=== PATIENT | male | born 1985 | race Hispanic/Latino ===

== ENCOUNTER 2016-08-20 15:43 | Emergency (ER) | payer MEDICAID ==
[2016-08-20 16:20] VITALS: BP 136/94
[2016-08-20 16:58] LABS: Basophils % (Auto) 0.8 % (0.0-1.8); Hematocrit 45.6 % (35.5-45.6); Hemoglobin 15.6 gm/dl (11.8-15.2); Mean Corpuscular HGB Conc 34 % (32-34); Mean Corpuscular Hemoglobin 32 pg (28-32); Mean Corpuscular Volume 94 fl (84-94); Platelet Count 301 K/mm3 (140-440); Red Blood Count 4.86 M/mm3 (3.65-5.03); Red Cell Distribution Width 13.8 % (13.2-15.2)
[2016-08-20 17:25] LABS: Urine Drugs of Abuse Note Disclamer
[2016-08-20 17:34] LABS: Anion Gap 20 mmol/L; BUN/Creatinine Ratio 12.85; Blood Urea Nitrogen 9 mg/dL (9-20); Calcium 8.9 mg/dL (8.4-10.2); Carbon Dioxide 20 mmol/L (22-30); Chloride 100.2 mmol/L (98-107); Glucose 94 mg/dL (75-100); Potassium 3.9 mmol/L (3.6-5.0); Sodium 136 mmol/L (137-145)
[2016-08-20 17:43] LABS: Bilirubin,Urine NEG (Negative); Blood,Urine NEG (Negative); Ketones,Urine NEG (Negative); Leukocyte Esterase,Urine NEG (Negative); Nitrite,Urine NEG (Negative); Protein,Urine <15 mg/dL mg/dL (Negative); Urobilinogen,Urine < 2.0 mg/dL (<2.0); WBC,Urine < 1.0 /HPF (0.0-6.0)
--- NOTE | 2016-08-22 00:37 | ED Elopement Review ---
ED Pt Elopement review - Results review Lab results: Laboratory Tests 08/20/16 08/20/16 08/20/16 16:37 16:37 16:37 WBC 8.0 RBC 4.86 Hgb 15.6 H Hct 45.6 MCV 94 MCH 32 MCHC 34 RDW 13.8 Plt Count 301 Lymph % (Auto) 19.2 [place] % (Auto) 7.9 H Eos % (Auto) 1.0 Baso % (Auto) 0.8 Lymph # 1.5 [place] # 0.6 Eos # 0.1 Baso # 0.1 Seg Neutrophils % 71.1 H Seg Neutrophils # 5.7 Sodium 136 L Potassium 3.9 Chloride 100.2 Carbon Dioxide 20 L Anion Gap 20 BUN 9 Creatinine 0.7 L Estimated GFR > 60 BUN/Creatinine Ratio 12.85 Glucose 94 Calcium 8.9 Urine Color Urine Turbidity Urine pH Ur Specific [place] Urine Protein Urine Glucose (UA) Urine Ketones Urine Blood Urine Nitrite Urine Bilirubin Urine Urobilinogen Ur Leukocyte Esterase Urine WBC (Auto) Urine RBC (Auto) Urine Opiates Screen Urine Methadone Screen Ur Barbiturates Screen Ur Phencyclidine Scrn Ur Amphetamines Screen U Benzodiazepines Scrn Urine Cocaine Screen U Marijuana (THC) Screen Drugs of Abuse Note Plasma/Serum Alcohol < 0.01 08/20/16 08/20/16 17:23 17:23 WBC RBC Hgb Hct MCV MCH MCHC RDW Plt Count Lymph % (Auto) [place] % (Auto) Eos % (Auto) Baso % (Auto) Lymph # [place] # Eos # Baso # Seg Neutrophils % Seg Neutrophils # Sodium Potassium Chloride Carbon Dioxide Anion Gap BUN Creatinine Estimated GFR BUN/Creatinine Ratio Glucose Calcium Urine Color Yellow Urine Turbidity Clear Urine pH 6.0 Ur Specific [place] 1.011 Urine Protein <15 mg/dl Urine Glucose (UA) Neg Urine Ketones Neg Urine Blood Neg Urine Nitrite Neg Urine Bilirubin Neg Urine Urobilinogen < 2.0 Ur Leukocyte Esterase Neg Urine WBC (Auto) < 1.0 Urine RBC (Auto) 1.0 Urine Opiates Screen Presumptive negative Urine Methadone Screen Presumptive negative Ur Barbiturates Screen Presumptive negative Ur Phencyclidine Scrn Presumptive negative Ur Amphetamines Screen Presumptive negative U Benzodiazepines Scrn Presumptive negative Urine Cocaine Screen Presumptive negative U Marijuana (THC) Screen Presumptive negative Drugs of Abuse Note Disclamer Plasma/Serum Alcohol - Call Back decision Pt Call Back Decision: No action required
== END 2016-08-20 16:37 | disposition left against medical advice (07) ==
LOC: ED 15:43 → EEVIPCON 15:43 → ED 16:37
DX: R00.2 Palpitations (principal); Z88.6 Allergy status to analgesic agent; Z91.048 Other nonmedicinal substance allergy status; Z79.899 Other long term (current) drug therapy; Z53.21 Procedure and treatment not carried out due to patient leaving prior to being seen by health care provider
CPT/HCPCS: 36415; 80048; 80307; 81001; 85025; G0480; 80320

== ENCOUNTER 2016-08-21 10:49 | Emergency (ER) | payer MEDICAID ==
[2016-08-21 12:24] LABS: Basophils % (Auto) 0.7 % (0.0-1.8); Eosinophils % (Auto) 2.8 % (0.0-4.3); Hemoglobin 15.7 gm/dl (11.8-15.2); Mean Corpuscular HGB Conc 34 % (32-34); Mean Corpuscular Hemoglobin 31 pg (28-32); Mean Corpuscular Volume 94 fl (84-94); Platelet Count 313 K/mm3 (140-440); Red Blood Count 5.01 M/mm3 (3.65-5.03); Red Cell Distribution Width 13.4 % (13.2-15.2); White Blood Count 8.8 K/mm3 (4.5-11.0)
[2016-08-21 12:42] LABS: BUN/Creatinine Ratio 11.66; Blood Urea Nitrogen 7 mg/dL (9-20); Carbon Dioxide 23 mmol/L (22-30); Glucose 92 mg/dL (75-100)
[2016-08-21 12:43] LABS: Anion Gap 15 mmol/L; Chloride 104.8 mmol/L (98-107); Potassium 4.1 mmol/L (3.6-5.0); Sodium 139 mmol/L (137-145)
[2016-08-21 15:25] LABS: Urine Drugs of Abuse Note Disclamer
[2016-08-21 15:41] LABS: Bilirubin,Urine NEG (Negative); Blood,Urine NEG (Negative); Ketones,Urine 20 mg/dL (Negative); Leukocyte Esterase,Urine NEG (Negative); Mucus,Urine FEW /HPF; Nitrite,Urine NEG (Negative); Protein,Urine <15 mg/dL mg/dL (Negative); Urobilinogen,Urine < 2.0 mg/dL (<2.0); WBC,Urine < 1.0 /HPF (0.0-6.0)
[2016-08-21 17:09] VITALS: BP 123/84
--- NOTE | 2016-08-21 17:59 | Emergency Department Report ---
ED Psych HPI - General Chief Complaint: Medical Clearance Stated Complaint: MEDICAL CLEARENCE Time Seen by Provider: 08/21/16 17:29 Source: patient Mode of arrival: Ambulatory Limitations: No Limitations - History of Present Illness Initial Comments: 30-year-old male with a past medical history of schizophrenia, hypertension, surgery for previous brain aneurysm to the hospital with requests to be transferred to [facility]. Patient states he needs to go to [place] because he was homeless and has nowhere else to go. Patient also states he use some drugs recently (mixed with multiple drugs as per pt) and pt requesting drug rehabilitation as well. Patient denies feeling suicidal, homicidal, or auditory or visual hallucinations. Patient states he's been compliant with his psychiatric medication. No physical complaints reported. - Related Data Home Medications Medication Instructions Recorded Confirmed Last Taken Haloperidol [Haldol] 5 mg PO BID 10/07/15 05/16/16 Unknown Divalproex ER [Depakote ER] 2 tab PO BID 01/01/16 05/16/16 Unknown Buspirone HCl [busPIRone] 15 mg PO TID 03/29/16 05/16/16 Unknown Divalproex ER [DepaKOTE ER] 1,000 mg PO QHS 03/29/16 05/16/16 Unknown OLANzapine [ZyPREXA] 10 mg PO DAILY 03/29/16 05/16/16 Unknown OLANzapine [ZyPREXA] 30 mg PO QHS 03/29/16 05/16/16 Unknown rOPINIRole [Requip] 0.5 mg PO QHS 03/29/16 05/16/16 Unknown traZODone [Desyrel] 50 mg PO QHS 03/29/16 05/16/16 Unknown Previous Rx's Medication Instructions Recorded Last Taken Type Mirtazapine [Remeron] 30 mg PO QHS #30 tablet 10/07/15 Unknown Rx Allergies Allergy/AdvReac Type Severity Reaction Status Date / Time codeine Allergy Unknown Verified 03/01/16 22:56 nickel Allergy Rash Uncoded 04/07/15 10:37 ED Review of Systems ROS: Stated complaint: MEDICAL CLEARENCE Other details as noted in HPI Comment: All other systems reviewed and negative Other: Constitutional: No fevers chills Eyes: No eye pain visual changes ENT: No ear pain or throat pain Neck: Denies pain Respiratory: Denies cough wheezing shortness of breath Cardiovascular: Denies chest pain, palpitations, syncope GI: Denies abdominal pain, nausea, vomiting, diarrhea : Denies dysuria, urinary frequency, or urgency Musculoskeletal: Denies back pain, joint swelling Skin: Denies rash, lesions, erythema Neurologic: Denies headache, numbness, weakness Psychiatric: Denies suicidal ideation, hallucinations ED Past Medical Hx - Past Medical History Hx Hypertension: Yes Hx Psychiatric Treatment: Yes (schizophrenia) - Surgical History Hx Appendectomy: Yes Additional Surgical History: BRAIN SURGERY( aneurysm) - Social History Smoking Status: Current Every Day Smoker Substance Use Type: Alcohol - Medications Home Medications: Home Medications Medication Instructions Recorded Confirmed Last Taken Type Haloperidol [Haldol] 5 mg PO BID 10/07/15 05/16/16 Unknown History Mirtazapine [Remeron] 30 mg PO QHS #30 tablet 10/07/15 05/16/16 Unknown Rx Divalproex ER [Depakote ER] 2 tab PO BID 01/01/16 05/16/16 Unknown History Buspirone HCl [busPIRone] 15 mg PO TID 03/29/16 05/16/16 Unknown History Divalproex ER [DepaKOTE ER] 1,000 mg PO QHS 03/29/16 05/16/16 Unknown History OLANzapine [ZyPREXA] 10 mg PO DAILY 03/29/16 05/16/16 Unknown History OLANzapine [ZyPREXA] 30 mg PO QHS 03/29/16 05/16/16 Unknown History rOPINIRole [Requip] 0.5 mg PO QHS 03/29/16 05/16/16 Unknown History traZODone [Desyrel] 50 mg PO QHS 03/29/16 05/16/16 Unknown History ED Physical Exam - General Limitations: No Limitations - Other Other exam information: General: No limitations, patient is alert in no acute distress poor hygiene Head exam: Atraumatic, normocephalic Eyes exam: Normal appearance ENT: Moist mucous membrane, normal oropharynx Neck exam: Normal inspection, full range of motion, no meningismus nontender Respiratory exam: Clear to auscultation bilateral, no wheezes, rales, crackles Cardiovascular: Normal rate and rhythm, normal heart sounds Abdomen: Soft, nondistended, and nontender, with normal bowel sounds, no rebound, or guarding Extremity: Full range of motion normal inspection no deformity Back: Normal Inspection, full range of motion, no tenderness Neurologic: Alert, oriented x3, cranial nerves intact, no motor or sensory deficit Psychiatric: normal affect, normal mood Skin: Warm, dry, intact ED Course Vital Signs 08/21/16 08/21/16 08/21/16 11:53 17:04 17:09 Temperature 98.3 F 98.1 F Pulse Rate 89 91 H Respiratory 20 17 16 Rate Blood Pressure 120/83 Blood Pressure 123/84 [Left] O2 Sat by Pulse 97 97 97 Oximetry - Consultations Consultation #1: 08/21/16 17:58 consult ED Medical Decision Making - Lab Data Result diagrams: 08/21/16 12:11 08/21/16 12:11 Lab Results 08/21/16 08/21/16 08/21/16 Range/Units 12:11 12:11 12:11 WBC 8.8 (4.5-11.0) K/mm3 RBC 5.01 (3.65-5.03) M/mm3 Hgb 15.7 H (11.8-15.2) gm/dl Hct 47.0 H (35.5-45.6) % MCV 94 (84-94) fl MCH 31 (28-32) pg MCHC 34 (32-34) % RDW 13.4 (13.2-15.2) % Plt Count 313 (140-440) K/mm3 Lymph % (Auto) 22.3 (13.4-35.0) % [place] % (Auto) 6.5 (0.0-7.3) % Eos % (Auto) 2.8 (0.0-4.3) % Baso % (Auto) 0.7 (0.0-1.8) % Lymph # 2.0 (1.2-5.4) K/mm3 [place] # 0.6 (0.0-0.8) K/mm3 Eos # 0.2 (0.0-0.4) K/mm3 Baso # 0.1 (0.0-0.1) K/mm3 Seg Neutrophils % 67.7 (40.0-70.0) % Seg Neutrophils # 6.0 (1.8-7.7) K/mm3 Sodium 139 (137-145) mmol/L Potassium 4.1 (3.6-5.0) mmol/L Chloride 104.8 (98-107) mmol/L Carbon Dioxide 23 (22-30) mmol/L Anion Gap 15 mmol/L BUN 7 L (9-20) mg/dL Creatinine 0.6 L (0.8-1.5) mg/dL Estimated GFR > 60 ml/min BUN/Creatinine Ratio 11.66 % Glucose 92 (75-100) mg/dL Calcium 9.0 (8.4-10.2) mg/dL Urine Color (Yellow) Urine Turbidity (Clear) Urine pH (5.0-7.0) Ur Specific [place] (1.003-1.030) Urine Protein (Negative) mg/dL Urine Glucose (UA) (Negative) mg/dL Urine Ketones (Negative) mg/dL Urine Blood (Negative) Urine Nitrite (Negative) Urine Bilirubin (Negative) Urine Urobilinogen (<2.0) mg/dL Ur Leukocyte Esterase (Negative) Urine WBC (Auto) (0.0-6.0) /HPF Urine RBC (Auto) (0.0-6.0) /HPF Urine Mucus /HPF Urine Opiates Screen Urine Methadone Screen Ur Barbiturates Screen Ur Phencyclidine Scrn Ur Amphetamines Screen U Benzodiazepines Scrn Urine Cocaine Screen U Marijuana (THC) Screen Drugs of Abuse Note Plasma/Serum Alcohol < 0.01 (0-0.07) gm% 08/21/16 08/21/16 Range/Units 14:43 14:43 WBC (4.5-11.0) K/mm3 RBC (3.65-5.03) M/mm3 Hgb (11.8-15.2) gm/dl Hct (35.5-45.6) % MCV (84-94) fl MCH (28-32) pg MCHC (32-34) % RDW (13.2-15.2) % Plt Count (140-440) K/mm3 Lymph % (Auto) (13.4-35.0) % [place] % (Auto) (0.0-7.3) % Eos % (Auto) (0.0-4.3) % Baso % (Auto) (0.0-1.8) % Lymph # (1.2-5.4) K/mm3 [place] # (0.0-0.8) K/mm3 Eos # (0.0-0.4) K/mm3 Baso # (0.0-0.1) K/mm3 Seg Neutrophils % (40.0-70.0) % Seg Neutrophils # (1.8-7.7) K/mm3 Sodium (137-145) mmol/L Potassium (3.6-5.0) mmol/L Chloride (98-107) mmol/L Carbon Dioxide (22-30) mmol/L Anion Gap mmol/L BUN (9-20) mg/dL Creatinine (0.8-1.5) mg/dL Estimated GFR ml/min BUN/Creatinine Ratio % Glucose (75-100) mg/dL Calcium (8.4-10.2) mg/dL Urine Color Yellow (Yellow) Urine Turbidity Clear (Clear) Urine pH 6.0 (5.0-7.0) Ur Specific [place] 1.011 (1.003-1.030) Urine Protein <15 mg/dl (Negative) mg/dL Urine Glucose (UA) Neg (Negative) mg/dL Urine Ketones 20 (Negative) mg/dL Urine Blood Neg (Negative) Urine Nitrite Neg (Negative) Urine Bilirubin Neg (Negative) Urine Urobilinogen < 2.0 (<2.0) mg/dL Ur Leukocyte Esterase Neg (Negative) Urine WBC (Auto) < 1.0 (0.0-6.0) /HPF Urine RBC (Auto) 1.0 (0.0-6.0) /HPF Urine Mucus Few /HPF Urine Opiates Screen Presumptive negative Urine Methadone Screen Presumptive negative Ur Barbiturates Screen Presumptive negative Ur Phencyclidine Scrn Presumptive negative Ur Amphetamines Screen Presumptive negative U Benzodiazepines Scrn Presumptive negative Urine Cocaine Screen Presumptive negative U Marijuana (THC) Screen Presumptive negative Drugs of Abuse Note Disclamer Plasma/Serum Alcohol (0-0.07) gm% - Medical Decision Making Patient evaluated by mental health provider and she agrees that patient does not meet 1013 criteria. UDS is negative. Patient denies suicidal ideation and acute psychosis. Patient's primary reason for being in the ER appears to be homelessness. He provided resources for shelters and discharged home - Differential Diagnosis homelessness, depression, schizophrenia, substance Critical Care Time: No Critical care attestation.: If time is entered above; I have spent that time in minutes in the direct care of this critically ill patient, excluding procedure time. ED Disposition Clinical Impression: Homelessness, Schizophrenia Disposition: DISCHARGED TO HOME OR SELFCARE Is pt being admited?: No Does the pt Need Aspirin: No Condition: Stable Instructions: Schizophrenia (ED) Additional Instructions: Continue your medications as prescribed. Follow-up with either psychiatrist clinic provided. Return if symptoms worsen Referrals: [facility] [Outside] - 2-3 Days md mulu [Other] - 2-3 Days Time of Disposition: 18:25
== END 2016-08-21 19:11 | disposition home or self-care (01) ==
LOC: ED 10:49
DX: F20.9 Schizophrenia, unspecified (principal); Z59.0 Homelessness; I10 Essential (primary) hypertension; F17.200 Nicotine dependence, unspecified, uncomplicated; Z90.49 Acquired absence of other specified parts of digestive tract; Z88.5 Allergy status to narcotic agent; Z88.8 Allergy status to other drugs, medicaments and biological substances
CPT/HCPCS: 36415; 80048; 80307; 81001; 85025; 99284; G0480; 80320

== ENCOUNTER 2016-08-26 03:08 | Emergency (ER) | payer MEDICAID ==
[2016-08-26 04:06] LABS: Basophils % (Auto) 0.5 % (0.0-1.8); Eosinophils % (Auto) 0.3 % (0.0-4.3); Hematocrit 49.5 % (35.5-45.6); Hemoglobin 16.6 gm/dl (11.8-15.2); Mean Corpuscular HGB Conc 34 % (32-34); Mean Corpuscular Hemoglobin 31 pg (28-32); Mean Corpuscular Volume 94 fl (84-94); Platelet Count 343 K/mm3 (140-440); Red Blood Count 5.27 M/mm3 (3.65-5.03); Red Cell Distribution Width 13.7 % (13.2-15.2); White Blood Count 14.3 K/mm3 (4.5-11.0)
[2016-08-26 04:08] LABS: Urine Drugs of Abuse Note Disclamer
[2016-08-26 04:22] LABS: Anion Gap 19 mmol/L; Blood Urea Nitrogen 9 mg/dL (9-20); Calcium 9.1 mg/dL (8.4-10.2); Carbon Dioxide 21 mmol/L (22-30); Chloride 98.7 mmol/L (98-107); Glucose 109 mg/dL (75-100); Potassium 3.6 mmol/L (3.6-5.0); Sodium 135 mmol/L (137-145)
[2016-08-26 04:31] LABS: Bilirubin,Urine NEG (Negative); Blood,Urine NEG (Negative); Ketones,Urine 80 mg/dL (Negative); Leukocyte Esterase,Urine NEG (Negative); Mucus,Urine FEW /HPF; Nitrite,Urine NEG (Negative); Urobilinogen,Urine < 2.0 mg/dL (<2.0)
[2016-08-26] MEDS ORDERED: ATIVAN IM PRN (07:13)
--- NOTE | 2016-08-26 07:20 | Emergency Department Report ---
ED General Adult HPI - General Chief complaint: Psych Stated complaint: MH EVALUATION Time Seen by Provider: 08/26/16 07:04 Source: patient, RN notes reviewed, old records reviewed Mode of arrival: Ambulatory Limitations: No Limitations - History of Present Illness Initial comments: This is a 30-year-old male. He has a history of psychiatric disease, schizophrenia, hypertension. He presents to the ER with resolved homicidality and suicidality. He requests to have his medications refilled. He indicates that he is homeless. He denies pain. He denies hallucinations. -: Gradual Consistency: now resolved Improves with: none Worsens with: none Associated Symptoms: denies other symptoms - Related Data Home Medications Medication Instructions Recorded Confirmed Last Taken Haloperidol [Haldol] 5 mg PO BID 10/07/15 08/26/16 Unknown Divalproex ER [Depakote ER] 2 tab PO BID 01/01/16 08/26/16 Unknown Buspirone HCl [busPIRone] 15 mg PO TID 03/29/16 08/26/16 Unknown Divalproex ER [DepaKOTE ER] 1,000 mg PO QHS 03/29/16 08/26/16 Unknown OLANzapine [ZyPREXA] 10 mg PO DAILY 03/29/16 08/26/16 Unknown rOPINIRole [Requip] 0.5 mg PO QHS 03/29/16 08/26/16 Unknown traZODone [Desyrel] 50 mg PO QHS 03/29/16 08/26/16 Unknown Previous Rx's Medication Instructions Recorded Last Taken Type Mirtazapine [Remeron] 30 mg PO QHS #30 tablet 10/07/15 Unknown Rx Allergies Allergy/AdvReac Type Severity Reaction Status Date / Time codeine Allergy Unknown Verified 03/01/16 22:56 nickel Allergy Rash Uncoded 04/07/15 10:37 ED Review of Systems ROS: Stated complaint: MH EVALUATION Other details as noted in HPI Constitutional: denies: fever Eyes: denies: eye discharge ENT: as per HPI Respiratory: denies: cough Cardiovascular: denies: chest pain Gastrointestinal: as per HPI. denies: vomiting Genitourinary: as per HPI Musculoskeletal: denies: back pain Skin: denies: lesions Neurological: denies: weakness Psychiatric: as per HPI ED Past Medical Hx - Past Medical History Previous Medical History?: Yes Hx Hypertension: Yes Hx Psychiatric Treatment: Yes (schizophrenia) - Surgical History Past Surgical History?: Yes Hx Appendectomy: Yes Additional Surgical History: BRAIN SURGERY( aneurysm) - Social History Smoking Status: Unknown if ever smoked Substance Use Type: Alcohol, Cocaine, Marijuana - Medications Home Medications: Home Medications Medication Instructions Recorded Confirmed Last Taken Type Haloperidol [Haldol] 5 mg PO BID 10/07/15 08/26/16 Unknown History Mirtazapine [Remeron] 30 mg PO QHS #30 tablet 10/07/15 08/26/16 Unknown Rx Divalproex ER [Depakote ER] 2 tab PO BID 01/01/16 08/26/16 Unknown History Buspirone HCl [busPIRone] 15 mg PO TID 03/29/16 08/26/16 Unknown History Divalproex ER [DepaKOTE ER] 1,000 mg PO QHS 03/29/16 08/26/16 Unknown History OLANzapine [ZyPREXA] 10 mg PO DAILY 03/29/16 08/26/16 Unknown History rOPINIRole [Requip] 0.5 mg PO QHS 03/29/16 08/26/16 Unknown History traZODone [Desyrel] 50 mg PO QHS 03/29/16 08/26/16 Unknown History ED Physical Exam - General Limitations: No Limitations General appearance: alert, in no apparent distress - Head Head exam: Present: atraumatic, normocephalic - Eye Eye exam: Present: normal appearance, EOMI. Absent: nystagmus - ENT ENT exam: Present: normal exam, normal orophraynx, mucous membranes moist, normal external ear exam - Neck Neck exam: Present: normal inspection, full ROM. Absent: tenderness, meningismus - Respiratory Respiratory exam: Present: normal lung sounds bilaterally. Absent: respiratory distress, wheezes, rales, rhonchi, stridor, decreased breath sounds - Cardiovascular Cardiovascular Exam: Present: regular rate, normal rhythm, normal heart sounds. Absent: bradycardia, tachycardia, irregular rhythm, systolic murmur, diastolic murmur, rubs, gallop - GI/Abdominal GI/Abdominal exam: Present: soft, normal bowel sounds. Absent: distended, tenderness, guarding, rebound, rigid, pulsatile mass - Rectal Rectal exam: Present: deferred - Extremities Exam Extremities exam: Present: normal inspection, full ROM, normal capillary refill. Absent: tenderness, pedal edema, joint swelling, calf tenderness - Back Exam Back exam: Present: normal inspection, full ROM. Absent: tenderness, CVA tenderness (R), CVA tenderness (L), muscle spasm, paraspinal tenderness, vertebral tenderness - Neurological Exam Neurological exam: Present: alert, oriented X3, normal gait, other (Extraocular movements intact. Tongue midline. No facial droop. Facial sensation intact to light touch in the V1, V2, V3 distribution bilaterally. 5 and 5 strength in 4 extremities.. Sensation is intact to light touch in 4 extremities.). Absent : motor sensory deficit - Psychiatric Psychiatric exam: Present: flat affect. Absent: homicidal ideation, suicidal ideation - Skin Skin exam: Present: warm, dry, intact, normal color. Absent: rash ED Course Vital Signs 08/26/16 08/26/16 08/26/16 03:24 08:00 12:30 Temperature 98.2 F 98.4 F Pulse Rate 102 H 88 Respiratory 18 18 18 Rate Blood Pressure 151/111 Blood Pressure 146/84 [Left] O2 Sat by Pulse 100 99 100 Oximetry - Reevaluation(s) Reevaluation #1: 08/26/16 08:57 Differential diagnosis: Mood disorder, homicidality, suicidality, medication refill, homelessness Assessment and plan: 30-year-old male with an initial triage complaint of homicidality and suicidality. He is alert and oriented 3, with a GCS of 15, NIH score of 0, walks with a steady gait, has a physical examination is unremarkable. His urine toxicology screen is positive for multiple agents, there is no indication of head trauma, and there is no midline cervical spine tenderness. 1013 form is filled out, I am awaiting for the nurse to perform a medication reconciliation. At this point in time, it appears that there is no immediate medical contraindication to psychiatric admission/evaluation. The crisis team is informed. ED Medical Decision Making - Lab Data Result diagrams: 08/26/16 03:48 08/26/16 03:48 Vital Signs 08/26/16 03:24 Temperature 98.2 F Pulse Rate 102 H Respiratory 18 Rate Blood Pressure 151/111 O2 Sat by Pulse 100 Oximetry Lab Results 08/26/16 08/26/16 08/26/16 Range/Units 03:47 03:47 03:48 WBC (4.5-11.0) K/mm3 RBC (3.65-5.03) M/mm3 Hgb (11.8-15.2) gm/dl Hct (35.5-45.6) % MCV (84-94) fl MCH (28-32) pg MCHC (32-34) % RDW (13.2-15.2) % Plt Count (140-440) K/mm3 Lymph % (Auto) (13.4-35.0) % [place] % (Auto) (0.0-7.3) % Eos % (Auto) (0.0-4.3) % Baso % (Auto) (0.0-1.8) % Lymph # (1.2-5.4) K/mm3 [place] # (0.0-0.8) K/mm3 Eos # (0.0-0.4) K/mm3 Baso # (0.0-0.1) K/mm3 Seg Neutrophils % (40.0-70.0) % Seg Neutrophils # (1.8-7.7) K/mm3 Sodium 135 L (137-145) mmol/L Potassium 3.6 (3.6-5.0) mmol/L Chloride 98.7 (98-107) mmol/L Carbon Dioxide 21 L (22-30) mmol/L Anion Gap 19 mmol/L BUN 9 (9-20) mg/dL Creatinine 0.6 L (0.8-1.5) mg/dL Estimated GFR > 60 ml/min BUN/Creatinine Ratio 15.00 % Glucose 109 H (75-100) mg/dL Calcium 9.1 (8.4-10.2) mg/dL Total Creatine Kinase (55-170) units/L Urine Color Yellow (Yellow) Urine Turbidity Clear (Clear) Urine pH 5.0 (5.0-7.0) Ur Specific [place] 1.023 (1.003-1.030) Urine Protein 30 mg/dl (Negative) mg/dL Urine Glucose (UA) Neg (Negative) mg/dL Urine Ketones 80 (Negative) mg/dL Urine Blood Neg (Negative) Urine Nitrite Neg (Negative) Urine Bilirubin Neg (Negative) Urine Urobilinogen < 2.0 (<2.0) mg/dL Ur Leukocyte Esterase Neg (Negative) Urine WBC (Auto) 3.0 (0.0-6.0) /HPF Urine RBC (Auto) 1.0 (0.0-6.0) /HPF U Epithel Cells (Auto) < 1.0 (0-13.0) /HPF Urine Mucus Few /HPF Salicylates (2.8-20.0) mg/dL Urine Opiates Screen Presumptive negative Urine Methadone Screen Presumptive negative Acetaminophen (10.0-30.0) ug/mL Ur Barbiturates Screen Presumptive negative Valproic Acid (50-100) ug/mL Ur Phencyclidine Scrn Presumptive negative Ur Amphetamines Screen Presumptive positive U Benzodiazepines Scrn Presumptive negative Urine Cocaine Screen Presumptive positive U Marijuana (THC) Screen Presumptive positive Drugs of Abuse Note Disclamer Plasma/Serum Alcohol (0-0.07) gm% 08/26/16 08/26/16 08/26/16 Range/Units 03:48 03:48 06:36 WBC 14.3 H (4.5-11.0) K/mm3 RBC 5.27 H (3.65-5.03) M/mm3 Hgb 16.6 H (11.8-15.2) gm/dl Hct 49.5 H (35.5-45.6) % MCV 94 (84-94) fl MCH 31 (28-32) pg MCHC 34 (32-34) % RDW 13.7 (13.2-15.2) % Plt Count 343 (140-440) K/mm3 Lymph % (Auto) 9.7 L (13.4-35.0) % [place] % (Auto) 6.2 (0.0-7.3) % Eos % (Auto) 0.3 (0.0-4.3) % Baso % (Auto) 0.5 (0.0-1.8) % Lymph # 1.4 (1.2-5.4) K/mm3 [place] # 0.9 H (0.0-0.8) K/mm3 Eos # 0.0 (0.0-0.4) K/mm3 Baso # 0.1 (0.0-0.1) K/mm3 Seg Neutrophils % 83.3 H (40.0-70.0) % Seg Neutrophils # 11.9 H (1.8-7.7) K/mm3 Sodium (137-145) mmol/L Potassium (3.6-5.0) mmol/L Chloride (98-107) mmol/L Carbon Dioxide (22-30) mmol/L Anion Gap mmol/L BUN (9-20) mg/dL Creatinine (0.8-1.5) mg/dL Estimated GFR ml/min BUN/Creatinine Ratio % Glucose (75-100) mg/dL Calcium (8.4-10.2) mg/dL Total Creatine Kinase (55-170) units/L Urine Color (Yellow) Urine Turbidity (Clear) Urine pH (5.0-7.0) Ur Specific [place] (1.003-1.030) Urine Protein (Negative) mg/dL Urine Glucose (UA) (Negative) mg/dL Urine Ketones (Negative) mg/dL Urine Blood (Negative) Urine Nitrite (Negative) Urine Bilirubin (Negative) Urine Urobilinogen (<2.0) mg/dL Ur Leukocyte Esterase (Negative) Urine WBC (Auto) (0.0-6.0) /HPF Urine RBC (Auto) (0.0-6.0) /HPF U Epithel Cells (Auto) (0-13.0) /HPF Urine Mucus /HPF Salicylates (2.8-20.0) mg/dL Urine Opiates Screen Urine Methadone Screen Acetaminophen < 15.0 (10.0-30.0) ug/mL Ur Barbiturates Screen Valproic Acid (50-100) ug/mL Ur Phencyclidine Scrn Ur Amphetamines Screen U Benzodiazepines Scrn Urine Cocaine Screen U Marijuana (THC) Screen Drugs of Abuse Note Plasma/Serum Alcohol < 0.01 (0-0.07) gm% 08/26/16 08/26/16 Range/Units 06:50 06:50 WBC (4.5-11.0) K/mm3 RBC (3.65-5.03) M/mm3 Hgb (11.8-15.2) gm/dl Hct (35.5-45.6) % MCV (84-94) fl MCH (28-32) pg MCHC (32-34) % RDW (13.2-15.2) % Plt Count (140-440) K/mm3 Lymph % (Auto) (13.4-35.0) % [place] % (Auto) (0.0-7.3) % Eos % (Auto) (0.0-4.3) % Baso % (Auto) (0.0-1.8) % Lymph # (1.2-5.4) K/mm3 [place] # (0.0-0.8) K/mm3 Eos # (0.0-0.4) K/mm3 Baso # (0.0-0.1) K/mm3 Seg Neutrophils % (40.0-70.0) % Seg Neutrophils # (1.8-7.7) K/mm3 Sodium (137-145) mmol/L Potassium (3.6-5.0) mmol/L Chloride (98-107) mmol/L Carbon Dioxide (22-30) mmol/L Anion Gap mmol/L BUN (9-20) mg/dL Creatinine (0.8-1.5) mg/dL Estimated GFR ml/min BUN/Creatinine Ratio % Glucose (75-100) mg/dL Calcium (8.4-10.2) mg/dL Total Creatine Kinase 275 H (55-170) units/L Urine Color (Yellow) Urine Turbidity (Clear) Urine pH (5.0-7.0) Ur Specific [place] (1.003-1.030) Urine Protein (Negative) mg/dL Urine Glucose (UA) (Negative) mg/dL Urine Ketones (Negative) mg/dL Urine Blood (Negative) Urine Nitrite (Negative) Urine Bilirubin (Negative) Urine Urobilinogen (<2.0) mg/dL Ur Leukocyte Esterase (Negative) Urine WBC (Auto) (0.0-6.0) /HPF Urine RBC (Auto) (0.0-6.0) /HPF U Epithel Cells (Auto) (0-13.0) /HPF Urine Mucus /HPF Salicylates < 0.3 L (2.8-20.0) mg/dL Urine Opiates Screen Urine Methadone Screen Acetaminophen (10.0-30.0) ug/mL Ur Barbiturates Screen Valproic Acid < 2.8 L (50-100) ug/mL Ur Phencyclidine Scrn Ur Amphetamines Screen U Benzodiazepines Scrn Urine Cocaine Screen U Marijuana (THC) Screen Drugs of Abuse Note Plasma/Serum Alcohol (0-0.07) gm% Critical care attestation.: If time is entered above; I have spent that time in minutes in the direct care of this critically ill patient, excluding procedure time. ED Disposition Clinical Impression: Homelessness, Mood disorder Schizophrenia Qualifiers: Schizophrenia type: other Qualified Code(s): F20.89 - Other schizophrenia Disposition: DC/TX PSY HOSP/PSY UNIT Is pt being admited?: No Does the pt Need Aspirin: No Condition: Good Referrals: PRIMARY CARE, [Primary Care Provider] - 3-5 Days
[2016-08-26 08:23] LABS: Salicylate < 0.3 mg/dL (2.8-20.0); Valproate < 2.8 ug/mL (50-100)
[2016-08-26] MEDS ORDERED: MOTRIN PO PRN (08:55)
[2016-08-26] MEDS ORDERED: ZOFRAN ORAL LIQ PO PRN (08:55)
[2016-08-26 13:43] VITALS: BP 146/84
--- NOTE | 2016-08-26 14:15 | Consultation ---
History of Present Illness - Reason for Consult Consult date: 08/26/16 Reason for consult: psychiatry - Chief Complaint Chief complaint: disorganized - History of Present Psychiatric Illness Johnny Aleman is a 30 year old white male seen in the emergency department for psychiatric consultation. He is unable to tell me how he arrived at the emergency department. He reports "bad echo effects in head." He made several bizarre statements and was disorganized in thought. Speech is pressured. He did not respond to questions about drug use. He stated that he is went by another name in the past, Johnny Torres. Drug screen is positive for cocaine and methamphetamine and marijuana. He also reports "a lot of stuff depresses me." He denies regular alcohol use and states he drinks 1-2 beers every once in a while. He reports living in a hotel. When asked about inpatient treatment in the past he states that he went to study psychology. He also reports that he's all over tv. Medications and Allergies Allergies Allergy/AdvReac Type Severity Reaction Status Date / Time codeine Allergy Unknown Verified 03/01/16 22:56 nickel Allergy Rash Uncoded 04/07/15 10:37 Home Medications Medication Instructions Recorded Confirmed Last Taken Type Haloperidol [Haldol] 5 mg PO BID 10/07/15 08/26/16 Unknown History Mirtazapine [Remeron] 30 mg PO QHS #30 tablet 10/07/15 08/26/16 Unknown Rx Divalproex ER [Depakote ER] 2 tab PO BID 01/01/16 08/26/16 Unknown History Buspirone HCl [busPIRone] 15 mg PO TID 03/29/16 08/26/16 Unknown History Divalproex ER [DepaKOTE ER] 1,000 mg PO QHS 03/29/16 08/26/16 Unknown History OLANzapine [ZyPREXA] 10 mg PO DAILY 03/29/16 08/26/16 Unknown History rOPINIRole [Requip] 0.5 mg PO QHS 03/29/16 08/26/16 Unknown History traZODone [Desyrel] 50 mg PO QHS 03/29/16 08/26/16 Unknown History Active Meds: Active Medications Ibuprofen (Motrin) 600 mg PO QID PRN PRN Reason: Pain Lorazepam (Ativan) 2 mg IM Q4HR PRN PRN Reason: Agitation Ondansetron HCl (Zofran Oral Liq) 4 mg PO QID PRN PRN Reason: Nausea Past psychiatric history - Past Medical History Past Medical History: No medical history Past Surgical History: appendectomy - past Psychiatric treatment and history Psych: Anxiety, Addictions, Depression, Psychosis psychiatric treatment history: He reports previous medications of Depakote, Haldol, Cogentin. He reports going to the [facility] in the past. He is unable to specify when. - Social History Social history: other (staying in a hotel. Illicit drug use) Mental Status Exam - Vital signs Last Vital Signs Temp 98.4 F 08/26/16 12:30 Pulse 88 08/26/16 12:30 Resp 18 08/26/16 12:30 BP 146/84 08/26/16 12:30 Pulse Ox 100 08/26/16 12:30 - Exam Orientation: person Affect: other (constricted) Mood: other (indifferent) Thought content: delusions, other (bizarre) Thought Process: Tangential, Disorganized Speech: pressured Concentration: unable to pay attention Motor activity: restless Level of consciousness: alert Appetite: decreased Interaction: other (he attempted to be cooperative) Results Result Diagrams: 08/26/16 03:48 08/26/16 03:48 Abnormal lab results 08/26/16 08/26/16 08/26/16 Range/Units 03:48 03:48 06:50 WBC 14.3 H (4.5-11.0) K/mm3 RBC 5.27 H (3.65-5.03) M/mm3 Hgb 16.6 H (11.8-15.2) gm/dl Hct 49.5 H (35.5-45.6) % Lymph % (Auto) 9.7 L (13.4-35.0) % [place] # 0.9 H (0.0-0.8) K/mm3 Seg Neutrophils % 83.3 H (40.0-70.0) % Seg Neutrophils # 11.9 H (1.8-7.7) K/mm3 Sodium 135 L (137-145) mmol/L Carbon Dioxide 21 L (22-30) mmol/L Creatinine 0.6 L (0.8-1.5) mg/dL Glucose 109 H (75-100) mg/dL Total Creatine Kinase (55-170) units/L Salicylates < 0.3 L (2.8-20.0) mg/dL Valproic Acid < 2.8 L (50-100) ug/mL 08/26/16 Range/Units 06:50 WBC (4.5-11.0) K/mm3 RBC (3.65-5.03) M/mm3 Hgb (11.8-15.2) gm/dl Hct (35.5-45.6) % Lymph % (Auto) (13.4-35.0) % [place] # (0.0-0.8) K/mm3 Seg Neutrophils % (40.0-70.0) % Seg Neutrophils # (1.8-7.7) K/mm3 Sodium (137-145) mmol/L Carbon Dioxide (22-30) mmol/L Creatinine (0.8-1.5) mg/dL Glucose (75-100) mg/dL Total Creatine Kinase 275 H (55-170) units/L Salicylates (2.8-20.0) mg/dL Valproic Acid (50-100) ug/mL All other labs normal. Assessment and Plan Assessment and plan: Impression: Psychosis, possibly secondary to methamphetamine and cocaine use Possible history of schizophrenia as well Recommendation: Pursue inpatient hospitalization. Continue 1013. Encouraged by mouth intake of fluids. Initiate Haldol 5 mg twice a day, and titrate upward if his stay his prolonged Add Cogentin 0.5 mg twice a day for EPS prevention
[2016-08-26] MEDS ORDERED: HALDOL IM PRN (15:56)
[2016-08-26] MEDS ORDERED: HALDOL PO SCH (22:00)
[2016-08-26] MEDS ORDERED: COGENTIN PO SCH (22:00)
== END 2016-08-26 19:00 ==
LOC: ED 03:08
DX: F20.89 Other schizophrenia (principal); F39 Unspecified mood [affective] disorder; Z59.0 Homelessness; F12.90 Cannabis use, unspecified, uncomplicated; F14.90 Cocaine use, unspecified, uncomplicated; Z88.5 Allergy status to narcotic agent; Z91.048 Other nonmedicinal substance allergy status
CPT/HCPCS: 36415; 80048; 80164; 80307; 81001; 82550; 85025; 99285; G0480; J1630; J2060; 80320

== ENCOUNTER 2016-09-07 05:24 | Emergency (ER) | payer MEDICAID ==
[2016-09-07 06:44] LABS: Urine Drugs of Abuse Note Disclamer
[2016-09-07 06:51] LABS: Bilirubin,Urine NEG (Negative); Blood,Urine NEG (Negative); Ketones,Urine 20 mg/dL (Negative); Leukocyte Esterase,Urine NEG (Negative); Mucus,Urine FEW /HPF; Nitrite,Urine NEG (Negative); Protein,Urine <15 mg/dL mg/dL (Negative); Urobilinogen,Urine < 2.0 mg/dL (<2.0)
[2016-09-07 08:38] LABS: Anion Gap 19 mmol/L; Basophils % (Auto) 0.5 % (0.0-1.8); Blood Urea Nitrogen 22 mg/dL (9-20); Calcium 9.1 mg/dL (8.4-10.2); Carbon Dioxide 21 mmol/L (22-30); Eosinophils % (Auto) 0.5 % (0.0-4.3); Glucose 91 mg/dL (75-100); Hematocrit 47.3 % (35.5-45.6); Mean Corpuscular HGB Conc 34 % (32-34); Mean Corpuscular Hemoglobin 31 pg (28-32); Mean Corpuscular Volume 92 fl (84-94); Platelet Count 289 K/mm3 (140-440); Potassium 3.9 mmol/L (3.6-5.0); Red Blood Count 5.12 M/mm3 (3.65-5.03); Red Cell Distribution Width 13.3 % (13.2-15.2); Sodium 136 mmol/L (137-145); White Blood Count 13.5 K/mm3 (4.5-11.0)
--- NOTE | 2016-09-07 08:49 | Emergency Department Report ---
HPI - General Chief Complaint: Psych Time Seen by Provider: 09/07/16 08:33 - HPI HPI: [facility] The patient is a 30-year-old male presenting with a chief complaint of schizophrenia. The patient has a history of schizophrenia presents to the emergency department with disorganized thoughts. When asked why he came to the emergency department the patient begins to ramble incoherently mentioning "got a hotel room", "disability check" and "I have a lot of problems with people talking wall and trying to get some sleep." Patient denies suicidal or homicidal ideation. Patient denies auditory hallucinations Location: Mental state Duration: [see above] Quality: [see above] Severity: [see above] Modifying factors: Unknown Context: [see above] Mode of transportation: Unknown ED Past Medical Hx - Past Medical History Previous Medical History?: Yes Hx Hypertension: Yes Hx Psychiatric Treatment: Yes (schizophrenia) Additional medical history: thyroid - Surgical History Past Surgical History?: Yes Hx Appendectomy: Yes Additional Surgical History: BRAIN SURGERY( aneurysm) - Family History Family history: no significant - Social History Smoking Status: Current Every Day Smoker Substance Use Type: Alcohol - Medications Home Medications: Home Medications Medication Instructions Recorded Confirmed Last Taken Type Haloperidol [Haldol] 5 mg PO BID 10/07/15 08/26/16 Unknown History Mirtazapine [Remeron] 30 mg PO QHS #30 tablet 10/07/15 08/26/16 Unknown Rx Divalproex ER [Depakote ER] 2 tab PO BID 01/01/16 08/26/16 Unknown History Buspirone HCl [busPIRone] 15 mg PO TID 03/29/16 08/26/16 Unknown History Divalproex ER [DepaKOTE ER] 1,000 mg PO QHS 03/29/16 08/26/16 Unknown History OLANzapine [ZyPREXA] 10 mg PO DAILY 03/29/16 08/26/16 Unknown History rOPINIRole [Requip] 0.5 mg PO QHS 03/29/16 08/26/16 Unknown History traZODone [Desyrel] 50 mg PO QHS 03/29/16 08/26/16 Unknown History ED Review of Systems ROS: Stated complaint: MH EVAL Other details as noted in HPI Comment: Unobtainable due to pts medical conditions Psychiatric: denies: auditory hallucinations, homicidal thoughts, suicidal thoughts Physical Exam - Physical Exam Vital Signs: Vital Signs 09/07/16 05:30 Temperature 98.3 F Pulse Rate 116 H Blood Pressure 156/107 O2 Sat by Pulse 98 Oximetry Physical Exam: GENERAL: The patient is well-developed well-nourished male lying on stretcher not appearing to be in acute distress. Poor hygiene HEENT: Normocephalic. Atraumatic. Extraocular motions are intact. NECK: Supple. No meningitic signs are noted. Regular midline CHEST/LUNGS: Clear to auscultation. There is no respiratory distress noted. HEART/CARDIOVASCULAR: Regular. There is no gallop rub or murmur. ABDOMEN: Abdomen is soft, nontender. Patient has normal bowel sounds. There is no abdominal distention. SKIN: There is no rash. There is no edema. There is no diaphoresis. NEURO: The patient is awake and alert. The patient is cooperative. The patient has no focal neurologic deficits. The patient has normal speech and gait. MUSCULOSKELETAL: There is no evidence of acute injury. ED Course Vital Signs 09/07/16 05:30 Temperature 98.3 F Pulse Rate 116 H Blood Pressure 156/107 O2 Sat by Pulse 98 Oximetry ED Medical Decision Making - Lab Data Result diagrams: 09/07/16 08:07 09/07/16 08:07 Laboratory Tests 09/07/16 09/07/16 09/07/16 08:07 08:07 08:07 WBC 13.5 H RBC 5.12 H Hgb 16.0 H Hct 47.3 H MCV 92 MCH 31 MCHC 34 RDW 13.3 Plt Count 289 Lymph % (Auto) 17.6 [place] % (Auto) 12.1 H Eos % (Auto) 0.5 Baso % (Auto) 0.5 Lymph # 2.4 [place] # 1.6 H Eos # 0.1 Baso # 0.1 Seg Neutrophils % 69.3 Seg Neutrophils # 9.3 H Sodium 136 L Potassium 3.9 Chloride 100.0 Carbon Dioxide 21 L Anion Gap 19 BUN 22 H Creatinine 1.0 Estimated GFR > 60 BUN/Creatinine Ratio 22.00 Glucose 91 Calcium 9.1 Total Creatine Kinase CK-MB (CK-2) CK-MB (CK-2) Rel Index Troponin T Urine Color Urine Turbidity Urine pH Ur Specific [place] Urine Protein Urine Glucose (UA) Urine Ketones Urine Blood Urine Nitrite Urine Bilirubin Urine Urobilinogen Ur Leukocyte Esterase Urine WBC (Auto) Urine RBC (Auto) Urine Mucus Urine Opiates Screen Urine Methadone Screen Ur Barbiturates Screen Valproic Acid Ur Phencyclidine Scrn Ur Amphetamines Screen U Benzodiazepines Scrn Urine Cocaine Screen U Marijuana (THC) Screen Drugs of Abuse Note Plasma/Serum Alcohol < 0.01 09/07/16 09/07/16 09/07/16 08:07 08:07 08:07 WBC RBC Hgb Hct MCV MCH MCHC RDW Plt Count Lymph % (Auto) [place] % (Auto) Eos % (Auto) Baso % (Auto) Lymph # [place] # Eos # Baso # Seg Neutrophils % Seg Neutrophils # Sodium Potassium Chloride Carbon Dioxide Anion Gap BUN Creatinine Estimated GFR BUN/Creatinine Ratio Glucose Calcium Total Creatine Kinase 313 H CK-MB (CK-2) 3.2 CK-MB (CK-2) Rel Index 1.0 Troponin T < 0.010 Urine Color Urine Turbidity Urine pH Ur Specific [place] Urine Protein Urine Glucose (UA) Urine Ketones Urine Blood Urine Nitrite Urine Bilirubin Urine Urobilinogen Ur Leukocyte Esterase Urine WBC (Auto) Urine RBC (Auto) Urine Mucus Urine Opiates Screen Urine Methadone Screen Ur Barbiturates Screen Valproic Acid 96.5 Ur Phencyclidine Scrn Ur Amphetamines Screen U Benzodiazepines Scrn Urine Cocaine Screen U Marijuana (THC) Screen Drugs of Abuse Note Plasma/Serum Alcohol 09/07/16 09/07/16 Unknown Unknown WBC RBC Hgb Hct MCV MCH MCHC RDW Plt Count Lymph % (Auto) [place] % (Auto) Eos % (Auto) Baso % (Auto) Lymph # [place] # Eos # Baso # Seg Neutrophils % Seg Neutrophils # Sodium Potassium Chloride Carbon Dioxide Anion Gap BUN Creatinine Estimated GFR BUN/Creatinine Ratio Glucose Calcium Total Creatine Kinase CK-MB (CK-2) CK-MB (CK-2) Rel Index Troponin T Urine Color Yellow Urine Turbidity Clear Urine pH 5.0 Ur Specific [place] 1.029 Urine Protein <15 mg/dl Urine Glucose (UA) Neg Urine Ketones 20 Urine Blood Neg Urine Nitrite Neg Urine Bilirubin Neg Urine Urobilinogen < 2.0 Ur Leukocyte Esterase Neg Urine WBC (Auto) 2.0 Urine RBC (Auto) 1.0 Urine Mucus Few Urine Opiates Screen Presumptive negative Urine Methadone Screen Presumptive negative Ur Barbiturates Screen Presumptive negative Valproic Acid Ur Phencyclidine Scrn Presumptive negative Ur Amphetamines Screen Presumptive positive U Benzodiazepines Scrn Presumptive negative Urine Cocaine Screen Presumptive positive U Marijuana (THC) Screen Presumptive negative Drugs of Abuse Note Disclamer Plasma/Serum Alcohol - Differential Diagnosis schizophrenia, polysubstance abuse Critical care attestation.: If time is entered above; I have spent that time in minutes in the direct care of this critically ill patient, excluding procedure time. ED Disposition Clinical Impression: Schizophrenia, Polysubstance abuse Disposition: DC/TX PSY HOSP/PSY UNIT Is pt being admited?: No Does the pt Need Aspirin: No Condition: Fair Referrals: PRIMARY CARE, [Primary Care Provider] - 3-5 Days Time of Disposition: 10:39 (awaiting acceptance)
[2016-09-07 09:08] LABS: Creatine Kinase MB 3.2 ng/mL (0.0-4.0)
--- NOTE | 2016-09-07 16:04 | Consultation ---
History of Present Illness - Reason for Consult Consult date: 09/07/16 Reason for consult: Mental Health Evaluation Requesting physician: JES COOPER - Chief Complaint Chief complaint: "I was just a hotel" - History of Present Psychiatric Illness The patient is a 30-year-old white male presenting with a chief complaint of schizophrenia. Today patient is disheveled, delusional with a tangential thought process. He could not tell me why he is currently admitted to [facility]. He was incoherent telling me about a "hotel" where he resides. He was not able to tell me the name of the hotel or the location. When asked questions, he look away and talk to himself, so I had to redirect him. He did state, "I have schizophrenia." he could not recall his medications or the last time he took them. He did deny SI/HI's or AVH's at this time. Patient states that his appetite is "good" and have not experienced "insomnia." At this time patient is a poor historian. Positive for amphetamine and cocaine, but consumes alcohol "sometimes." Medications and Allergies Allergies Allergy/AdvReac Type Severity Reaction Status Date / Time codeine Allergy Unknown Verified 03/01/16 22:56 nickel Allergy Rash Uncoded 04/07/15 10:37 Home Medications Medication Instructions Recorded Confirmed Last Taken Type Haloperidol [Haldol] 5 mg PO BID 10/07/15 08/26/16 Unknown History Mirtazapine [Remeron] 30 mg PO QHS #30 tablet 10/07/15 08/26/16 Unknown Rx Divalproex ER [Depakote ER] 2 tab PO BID 01/01/16 08/26/16 Unknown History Buspirone HCl [busPIRone] 15 mg PO TID 03/29/16 08/26/16 Unknown History Divalproex ER [DepaKOTE ER] 1,000 mg PO QHS 03/29/16 08/26/16 Unknown History OLANzapine [ZyPREXA] 10 mg PO DAILY 03/29/16 08/26/16 Unknown History rOPINIRole [Requip] 0.5 mg PO QHS 03/29/16 08/26/16 Unknown History traZODone [Desyrel] 50 mg PO QHS 03/29/16 08/26/16 Unknown History Past psychiatric history - Past Medical History Past Medical History: other (unable to obtain) Past Surgical History: Other (unable to obtain) - past Psychiatric treatment and history Psych: Schizophrenia psychiatric treatment history: Patient could not tell any psy hx. Mental Status Exam - Vital signs Last Vital Signs Temp 98.3 F 09/07/16 05:30 Pulse 116 H 09/07/16 05:30 Resp BP 156/107 09/07/16 05:30 Pulse Ox 98 09/07/16 05:30 - Exam Narrative exam: ROS (+) Disorganzed, (-) Delusional Orientation: person Mood: other (blunted) Thought content: delusions Thought Process: Tangential, Thought Blocking Perceptions: none Speech: incoherent Concentration: unable to pay attention Motor activity: other (Sitting Up) Level of consciousness: confused Memory: Recent Impaired Sleep Symptoms: None Interaction: cooperative Results Result Diagrams: 09/07/16 08:07 09/07/16 08:07 Abnormal lab results 09/07/16 09/07/16 09/07/16 Range/Units 08:07 08:07 08:07 WBC 13.5 H (4.5-11.0) K/mm3 RBC 5.12 H (3.65-5.03) M/mm3 Hgb 16.0 H (11.8-15.2) gm/dl Hct 47.3 H (35.5-45.6) % [place] % (Auto) 12.1 H (0.0-7.3) % [place] # 1.6 H (0.0-0.8) K/mm3 Seg Neutrophils # 9.3 H (1.8-7.7) K/mm3 Sodium 136 L (137-145) mmol/L Carbon Dioxide 21 L (22-30) mmol/L BUN 22 H (9-20) mg/dL Total Creatine Kinase 313 H (55-170) units/L All other labs normal. Assessment and Plan Assessment and plan: Impression: Psychosis NOS, Substance Abuse Disorder. The patient is a 30-year- old white male presenting with a chief complaint of schizophrenia. Today patient is disheveled, delusional with a tangential thought process. The current psychosis could be induced by the current substance found in his UDS. Positive for amphetamines and cocaine. He denies SI/HI's and AVH's at this time. CK 313. Current VA 65.2. DD: Schizophrenia, Schizoaffective DO Recommendation/Plan: Continue 1013 with placement to inpatient psy services. Will reassess tomorrow to determine medication management.
[2016-09-07 21:04] VITALS: BP 130/83
== END 2016-09-07 21:26 ==
LOC: ED 05:24 → EEVIPCON 05:24 → ED 21:26
DX: F20.9 Schizophrenia, unspecified (principal); F19.10 Other psychoactive substance abuse, uncomplicated; I10 Essential (primary) hypertension; F17.200 Nicotine dependence, unspecified, uncomplicated; Z90.49 Acquired absence of other specified parts of digestive tract
CPT/HCPCS: 36415; 80048; 80164; 80307; 81001; 82550; 82553; 84484; 85025; 99285; G0480; 80320

== ENCOUNTER 2016-09-14 02:14 | Emergency (ER) | payer MEDICAID ==
[2016-09-14 03:36] LABS: Basophils % (Auto) 0.5 % (0.0-1.8); Eosinophils % (Auto) 1.1 % (0.0-4.3); Hematocrit 45.5 % (35.5-45.6); Hemoglobin 15.5 gm/dl (11.8-15.2); Mean Corpuscular HGB Conc 34 % (32-34); Mean Corpuscular Hemoglobin 32 pg (28-32); Mean Corpuscular Volume 94 fl (84-94); Platelet Count 257 K/mm3 (140-440); Red Blood Count 4.84 M/mm3 (3.65-5.03); Red Cell Distribution Width 13.4 % (13.2-15.2); White Blood Count 12.2 K/mm3 (4.5-11.0)
[2016-09-14 03:45] LABS: Anion Gap 17 mmol/L; BUN/Creatinine Ratio 16.25; Blood Urea Nitrogen 13 mg/dL (9-20); Calcium 8.8 mg/dL (8.4-10.2); Carbon Dioxide 24 mmol/L (22-30); Chloride 100.2 mmol/L (98-107); Glucose 94 mg/dL (75-100); Potassium 4.1 mmol/L (3.6-5.0); Sodium 137 mmol/L (137-145)
[2016-09-14 13:38] VITALS: BP 164/94
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
--- NOTE | 2016-09-14 14:30 | XRay Report ---
PORTABLE CHEST INDICATION: Hypertension. COMPARISON: 01/18/2016 FINDINGS: Portable, frontal chest radiograph now demonstrates slight exaggerated cardiomediastinal silhouette and lung markings centrally. No focal consolidation, pleural effusions or CHF. Unremarkable bones. CONCLUSION: No acute disease. Thank you for the opportunity to participate in this patient's care.
== END 2016-09-14 14:59 | disposition home or self-care (01) ==
LOC: ED 02:14 → EEVIPCON 02:14 → ED 14:59
DX: F22 Delusional disorders (principal); F20.89 Other schizophrenia; F14.10 Cocaine abuse, uncomplicated; R07.9 Chest pain, unspecified; I10 Essential (primary) hypertension; F17.200 Nicotine dependence, unspecified, uncomplicated; Z88.8 Allergy status to other drugs, medicaments and biological substances
CPT/HCPCS: 36415; 71010; 80048; 84484; 85025; 93005; 93010

== ENCOUNTER 2016-09-18 13:25 | Emergency (ER) | payer MEDICAID ==
--- NOTE | 2016-09-18 15:01 | Emergency Department Report ---
Entered by LISA DUVALL, acting as scribe for TOMAS WETZEL NP. Chief Complaint: Psych Stated Complaint: MENTAL EVAL Time Seen by Provider: 09/18/16 14:29 - HPI History of Present Illness: Patient presents to the ED c/o visual and auditory hallucinations. Patient does not look toxic or ill in appearance. no signs of distress noted. Denies suicidal thoughts or indication. Reports chest pain. Denies headache. PMHx of CHF, as per patient. Notes he ran out of psychiatric medication last night. - ROS Review of Systems: All system are negative unless stated in HPI above. - Exam Vital Signs: Vital Signs 09/18/16 14:12 Temperature 97.5 F L Pulse Rate 72 Respiratory 18 Rate Blood Pressure 117/81 O2 Sat by Pulse 100 Oximetry Physical Exam: General: well nourished, well developed, nontoxic in appearance, in no acute distress Cardiovascular: S1/S2 regular rate and rhythm Neurologic: Positive visual and auditory hallucinations. No suicidal ideation. No homicidal ideation. MSE screening note: Focused history and physical exam performed. Due to findings the following was ordered: ED Medical Decision Making - Medical Decision Making Patient seen by provider in triage area. Patient does not seem toxic or ill in appearance. UA, drug screen, EKG, CBC and BMP will be ordered on patient. ED Disposition for MSE Condition: Stable This documentation as recorded by the scribe,LISA DUVALL,accurately reflects the service I personally performed and the decisions made by ,TOMAS WETZEL NP.
[2016-09-18 15:17] LABS: Urine Drugs of Abuse Note Disclamer
[2016-09-18 15:20] LABS: Basophils % (Auto) 0.5 % (0.0-1.8); Eosinophils % (Auto) 1.7 % (0.0-4.3); Hematocrit 45.3 % (35.5-45.6); Hemoglobin 15.1 gm/dl (11.8-15.2); Mean Corpuscular HGB Conc 33 % (32-34); Mean Corpuscular Hemoglobin 31 pg (28-32); Mean Corpuscular Volume 94 fl (84-94); Platelet Count 293 K/mm3 (140-440); Red Blood Count 4.81 M/mm3 (3.65-5.03); Red Cell Distribution Width 13.2 % (13.2-15.2); White Blood Count 9.1 K/mm3 (4.5-11.0)
[2016-09-18 15:24] LABS: Anion Gap 14 mmol/L; BUN/Creatinine Ratio 7.14; Blood Urea Nitrogen 5 mg/dL (9-20); Calcium 9.2 mg/dL (8.4-10.2); Carbon Dioxide 27 mmol/L (22-30); Chloride 99.5 mmol/L (98-107); Glucose 94 mg/dL (75-100); Potassium 3.7 mmol/L (3.6-5.0); Sodium 137 mmol/L (137-145)
[2016-09-18 15:27] LABS: Bilirubin,Urine NEG (Negative); Blood,Urine NEG (Negative); Ketones,Urine NEG (Negative); Leukocyte Esterase,Urine NEG (Negative); Nitrite,Urine NEG (Negative); Protein,Urine <15 mg/dL mg/dL (Negative); Urobilinogen,Urine < 2.0 mg/dL (<2.0)
[2016-09-18 15:35] LABS: WBC,Urine < 1.0 /HPF (0.0-6.0)
[2016-09-19 03:38] LABS: Salicylate < 0.3 mg/dL (2.8-20.0); Valproate < 2.8 ug/mL (50-100)
[2016-09-19] MEDS ORDERED: ATIVAN IM PRN (03:41)
--- NOTE | 2016-09-19 03:42 | Emergency Department Report ---
ED General Adult HPI - General Chief complaint: Psych Stated complaint: MENTAL EVAL Time Seen by Provider: 09/18/16 14:46 Source: patient, RN notes reviewed Mode of arrival: Ambulatory Limitations: No Limitations - History of Present Illness Initial comments: This is a 30-year-old male. I have evaluated him in the past. Has a past medical history of schizophrenia and hypertension. The patient presents to the ER with hallucinations and requests a 1013. The patient does not have access to guns or firearms. He is not homicidal or suicidal. The patient requests to be taken off of all of his medications. He cannot recall the names of his medications. To me, he denies headache, neck pain, chest pain, abdominal pain or shortness of breath. History is limited, the patient cannot describe exacerbating or relieving factors, he is quite disorganized. -: unknown Severity scale (0 -10): 0 Quality: other (per hpi) Consistency: other (per hpi) Improves with: other (per hpi) Worsens with: other (per hpi) - Related Data Home Medications Medication Instructions Recorded Confirmed Last Taken Haloperidol [Haldol] 5 mg PO BID 10/07/15 08/26/16 Unknown Divalproex ER [Depakote ER] 2 tab PO BID 01/01/16 08/26/16 Unknown Buspirone HCl [busPIRone] 15 mg PO TID 03/29/16 08/26/16 Unknown Divalproex ER [DepaKOTE ER] 1,000 mg PO QHS 03/29/16 08/26/16 Unknown OLANzapine [ZyPREXA] 10 mg PO DAILY 03/29/16 08/26/16 Unknown rOPINIRole [Requip] 0.5 mg PO QHS 03/29/16 08/26/16 Unknown traZODone [Desyrel] 50 mg PO QHS 03/29/16 08/26/16 Unknown Previous Rx's Medication Instructions Recorded Last Taken Type Mirtazapine [Remeron] 30 mg PO QHS #30 tablet 10/07/15 Unknown Rx Naproxen [Naprosyn] 375 mg PO BID #7 tablet 09/14/16 Unknown Rx Allergies Allergy/AdvReac Type Severity Reaction Status Date / Time codeine Allergy Unknown Verified 03/01/16 22:56 nickel Allergy Rash Uncoded 11/11/15 10:37 ED Review of Systems ROS: Stated complaint: MENTAL EVAL Other details as noted in HPI Constitutional: denies: fever Eyes: denies: vision change ENT: denies: epistaxis Respiratory: denies: cough Cardiovascular: denies: chest pain Gastrointestinal: denies: abdominal pain Genitourinary: as per HPI Musculoskeletal: denies: back pain Skin: denies: lesions Neurological: denies: weakness Psychiatric: denies: homicidal thoughts, suicidal thoughts ED Past Medical Hx - Past Medical History Hx Hypertension: Yes Hx Psychiatric Treatment: Yes (schizophrenia) Additional medical history: thyroid - Surgical History Hx Appendectomy: Yes Additional Surgical History: BRAIN SURGERY( aneurysm) - Social History Smoking Status: Never Smoker Substance Use Type: None - Medications Home Medications: Home Medications Medication Instructions Recorded Confirmed Last Taken Type Haloperidol [Haldol] 5 mg PO BID 10/07/15 08/26/16 Unknown History Mirtazapine [Remeron] 30 mg PO QHS #30 tablet 10/07/15 08/26/16 Unknown Rx Divalproex ER [Depakote ER] 2 tab PO BID 01/01/16 08/26/16 Unknown History Buspirone HCl [busPIRone] 15 mg PO TID 03/29/16 08/26/16 Unknown History Divalproex ER [DepaKOTE ER] 1,000 mg PO QHS 03/29/16 08/26/16 Unknown History OLANzapine [ZyPREXA] 10 mg PO DAILY 03/29/16 08/26/16 Unknown History rOPINIRole [Requip] 0.5 mg PO QHS 03/29/16 08/26/16 Unknown History traZODone [Desyrel] 50 mg PO QHS 03/29/16 08/26/16 Unknown History Naproxen [Naprosyn] 375 mg PO BID #7 tablet 09/14/16 Unknown Rx ED Physical Exam - General Limitations: Other (patient is quite disorganized) General appearance: alert, in no apparent distress - Head Head exam: Present: atraumatic, normocephalic - Eye Eye exam: Present: normal appearance, EOMI. Absent: nystagmus - ENT ENT exam: Present: normal exam, normal orophraynx, mucous membranes moist, normal external ear exam - Neck Neck exam: Present: normal inspection, full ROM. Absent: tenderness, meningismus - Respiratory Respiratory exam: Present: normal lung sounds bilaterally. Absent: respiratory distress, wheezes, rales, rhonchi, decreased breath sounds - Cardiovascular Cardiovascular Exam: Present: regular rate, normal rhythm, normal heart sounds. Absent: bradycardia, tachycardia, irregular rhythm, systolic murmur, diastolic murmur, rubs, gallop - GI/Abdominal GI/Abdominal exam: Present: soft, normal bowel sounds. Absent: distended, tenderness, guarding, rebound, rigid, pulsatile mass - Rectal Rectal exam: Present: deferred - Extremities Exam Extremities exam: Present: normal inspection, full ROM, normal capillary refill. Absent: tenderness, pedal edema, joint swelling, calf tenderness - Back Exam Back exam: Present: normal inspection, full ROM. Absent: tenderness, CVA tenderness (R), CVA tenderness (L), muscle spasm, paraspinal tenderness, vertebral tenderness - Neurological Exam Neurological exam: Present: alert, normal gait, other (Extraocular movements intact. Tongue midline. No facial droop. Facial sensation intact to light touch in the V1, V2, V3 distribution bilaterally. 5 and 5 strength in 4 extremities.. Sensation is intact to light touch in 4 extremities.). Absent: motor sensory deficit - Psychiatric Psychiatric exam: Absent: homicidal ideation, suicidal ideation - Skin Skin exam: Present: warm, dry, intact, normal color. Absent: rash ED Course Vital Signs 09/18/16 09/19/16 09/19/16 14:12 01:38 04:04 Temperature 97.5 F L 98 F 98 F Pulse Rate 72 98 H 89 Respiratory 18 18 18 Rate Blood Pressure 117/81 Blood Pressure 114/80 127/86 [Left] O2 Sat by Pulse 100 98 99 Oximetry - Reevaluation(s) Reevaluation #1: 09/19/16 05:55 Differential diagnosis: Mood disorder, psychiatric decompensation, schizophrenia Assessment and plan: 30-year-old male who was disorganized, having hallucinations, not homicidal or suicidal. Does not exhibit inability to care for himself. Appears to be markedly disorganized with prior violations. Patient is placed on a 1013. At this point in time, there are no immediate medical contraindications to psychiatric admission/evaluation. However, the patient's disorganization improves, and the psychiatric consult independently agrees that he is suitable for discharge, I think it would be reasonable to discontinue his 1013. ED Medical Decision Making - Lab Data Result diagrams: 09/18/16 14:52 09/18/16 14:52 Vital Signs 09/18/16 09/19/16 09/19/16 14:12 01:38 04:04 Temperature 97.5 F L 98 F 98 F Pulse Rate 72 98 H 89 Respiratory 18 18 18 Rate Blood Pressure 117/81 Blood Pressure 114/80 127/86 [Left] O2 Sat by Pulse 100 98 99 Oximetry Labs 09/18/16 09/18/16 09/18/16 14:52 14:52 15:09 WBC 9.1 RBC 4.81 Hgb 15.1 Hct 45.3 MCV 94 MCH 31 MCHC 33 RDW 13.2 Plt Count 293 Lymph % (Auto) 22.7 [place] % (Auto) 9.8 H Eos % (Auto) 1.7 Baso % (Auto) 0.5 Lymph # 2.1 [place] # 0.9 H Eos # 0.2 Baso # 0.0 Seg Neutrophils % 65.3 Seg Neutrophils # 6.0 Sodium 137 Potassium 3.7 Chloride 99.5 Carbon Dioxide 27 Anion Gap 14 BUN 5 L Creatinine 0.7 L Estimated GFR > 60 BUN/Creatinine Ratio 7.14 Glucose 94 Calcium 9.2 Troponin T < 0.010 Urine Color Yellow Urine Turbidity Clear Urine pH 6.0 Ur Specific Carey 1.006 Urine Protein <15 mg/dl Urine Glucose (UA) Neg Urine Ketones Neg Urine Blood Neg Urine Nitrite Neg Urine Bilirubin Neg Urine Urobilinogen < 2.0 Ur Leukocyte Esterase Neg Urine WBC (Auto) < 1.0 Urine RBC (Auto) 1.0 U Epithel Cells (Auto) < 1.0 Salicylates Urine Opiates Screen Urine Methadone Screen Acetaminophen Ur Barbiturates Screen Valproic Acid Ur Phencyclidine Scrn Ur Amphetamines Screen U Benzodiazepines Scrn Urine Cocaine Screen U Marijuana (THC) Screen Drugs of Abuse Note Plasma/Serum Alcohol 09/18/16 09/19/16 09/19/16 15:09 03:03 03:03 WBC RBC Hgb Hct MCV MCH MCHC RDW Plt Count Lymph % (Auto) [place] % (Auto) Eos % (Auto) Baso % (Auto) Lymph # [place] # Eos # Baso # Seg Neutrophils % Seg Neutrophils # Sodium Potassium Chloride Carbon Dioxide Anion Gap BUN Creatinine Estimated GFR BUN/Creatinine Ratio Glucose Calcium Troponin T Urine Color Urine Turbidity Urine pH Ur Specific Carey Urine Protein Urine Glucose (UA) Urine Ketones Urine Blood Urine Nitrite Urine Bilirubin Urine Urobilinogen Ur Leukocyte Esterase Urine WBC (Auto) Urine RBC (Auto) U Epithel Cells (Auto) Salicylates < 0.3 L Urine Opiates Screen Presumptive negative Urine Methadone Screen Presumptive negative Acetaminophen < 15.0 Ur Barbiturates Screen Presumptive negative Valproic Acid < 2.8 L Ur Phencyclidine Scrn Presumptive negative Ur Amphetamines Screen Presumptive negative U Benzodiazepines Scrn Presumptive negative Urine Cocaine Screen Presumptive negative U Marijuana (THC) Screen Presumptive negative Drugs of Abuse Note Disclamer Plasma/Serum Alcohol 09/19/16 03:03 WBC RBC Hgb Hct MCV MCH MCHC RDW Plt Count Lymph % (Auto) [place] % (Auto) Eos % (Auto) Baso % (Auto) Lymph # [place] # Eos # Baso # Seg Neutrophils % Seg Neutrophils # Sodium Potassium Chloride Carbon Dioxide Anion Gap BUN Creatinine Estimated GFR BUN/Creatinine Ratio Glucose Calcium Troponin T Urine Color Urine Turbidity Urine pH Ur Specific Carey Urine Protein Urine Glucose (UA) Urine Ketones Urine Blood Urine Nitrite Urine Bilirubin Urine Urobilinogen Ur Leukocyte Esterase Urine WBC (Auto) Urine RBC (Auto) U Epithel Cells (Auto) Salicylates Urine Opiates Screen Urine Methadone Screen Acetaminophen Ur Barbiturates Screen Valproic Acid Ur Phencyclidine Scrn Ur Amphetamines Screen U Benzodiazepines Scrn Urine Cocaine Screen U Marijuana (THC) Screen Drugs of Abuse Note Plasma/Serum Alcohol < 0.01 - EKG Data EKG shows normal: sinus rhythm - EKG Data When compared to previous EKG there are: no significant change 09/19/16 05:56 Normal sinus, 70 bpm, left axis deviation, QTC 438 ms, not consistent with STEMI. Critical care attestation.: If time is entered above; I have spent that time in minutes in the direct care of this critically ill patient, excluding procedure time. ED Disposition Clinical Impression: Homelessness, Schizophrenia Disposition: DC/TX PSY HOSP/PSY UNIT Is pt being admited?: No Does the pt Need Aspirin: No Condition: Good Referrals: PRIMARY CARE, [Primary Care Provider] - 3-5 Days
--- NOTE | 2016-09-19 10:15 | Consultation ---
History of Present Illness - Reason for Consult Consult date: 09/19/16 Reason for consult: Mental Health Evaluation Requesting physician: MARK ROCHE - Chief Complaint Chief complaint: "I need my meds" - History of Present Psychiatric Illness This is a 30-year-old male white male that I evaluated in the past 09/07/2016. Has a past medical history of schizophrenia and hypertension. Today patient is calm, cooperative but disorganized with a tangential thought process. He was able to tell me that he ran out of his medications. Patient could not tell me where he currently reside. He kept stated that he may live with his "aunt." This is the same presentation I saw when I evaluated the patient on 09/07/2016. He stated that he requested an [employer] truck driver to bring him to [facility].. On previous admission patient was transferred to [place] inpatient services. He denies SI/ HI's, AVH's, or a poor appetite. He rate his depression 4/10, with 10 being the worse. He states that he does use recreational drugs. His UDS is clean. He states sleep disturbance currently. Medications and Allergies Allergies Allergy/AdvReac Type Severity Reaction Status Date / Time codeine Allergy Unknown Verified 03/01/16 22:56 nickel Allergy Rash Uncoded 04/07/15 10:37 Home Medications Medication Instructions Recorded Confirmed Last Taken Type Haloperidol [Haldol] 5 mg PO BID 10/07/15 08/26/16 Unknown History Mirtazapine [Remeron] 30 mg PO QHS #30 tablet 10/07/15 08/26/16 Unknown Rx Divalproex ER [Depakote ER] 2 tab PO BID 01/01/16 08/26/16 Unknown History Buspirone HCl [busPIRone] 15 mg PO TID 03/29/16 08/26/16 Unknown History Divalproex ER [DepaKOTE ER] 1,000 mg PO QHS 03/29/16 08/26/16 Unknown History OLANzapine [ZyPREXA] 10 mg PO DAILY 03/29/16 08/26/16 Unknown History rOPINIRole [Requip] 0.5 mg PO QHS 03/29/16 08/26/16 Unknown History traZODone [Desyrel] 50 mg PO QHS 03/29/16 08/26/16 Unknown History Naproxen [Naprosyn] 375 mg PO BID #7 tablet 09/14/16 Unknown Rx Active Meds: Active Medications Lorazepam (Ativan) 2 mg IM Q4HR PRN PRN Reason: Agitation Past psychiatric history - Past Medical History Past Medical History: No medical history Past Surgical History: No surgical history - past Psychiatric treatment and history Psych: Bipolar, Schizophrenia psychiatric treatment history: Multiple inpatient and outpatient psy settings. Denies fam psy hx. - Social History Social history: other ("Live with my sister") Mental Status Exam - Vital signs Last Vital Signs Temp 98 F 09/19/16 06:55 Pulse 75 09/19/16 06:55 Resp 18 09/19/16 06:55 BP 114/80 09/19/16 06:55 Pulse Ox 100 09/19/16 06:55 - Exam Narrative exam: ROS (+) disorganized, (+) psychosis MSE: Appearance: calm, cooperative Behavior: poor eye contact Speech: regular rate and tone Mood: "Not depressed" Affect: flat Thought Process: tangential Thought Content: denies SI/HI's and AVH's Motor Activity: ambulatory Cognition: A/Ox3 Insight: poor Judgment: poor Results Result Diagrams: 09/18/16 14:52 09/18/16 14:52 Abnormal lab results 09/18/16 09/18/16 09/19/16 Range/Units 14:52 14:52 03:03 [place] % (Auto) 9.8 H (0.0-7.3) % [place] # 0.9 H (0.0-0.8) K/mm3 BUN 5 L (9-20) mg/dL Creatinine 0.7 L (0.8-1.5) mg/dL Salicylates < 0.3 L (2.8-20.0) mg/dL Valproic Acid < 2.8 L (50-100) ug/mL All other labs normal. Assessment and Plan Assessment and plan: Impression: Unspecified Psychotic DOS. This is a 30-year-old male white male that I evaluated in the past 09/07/2016. Has a past medical history of schizophrenia and hypertension. Today patient is calm, cooperative but disorganized with a tangential thought process. He was able to tell me that he ran out of his medications. Patient could not tell me where he currently reside. He kept stated that he may live with his "aunt." This is the same presentation I saw when I evaluated the patient on 09/07/2016. Patient denies SI/ HI's and AVH's. DD: R/O Bipolar, Schizoaffective DO Recommendation/Plan: Continue 1013 with placement to inpatient psy services. Start Depakote 500 mg PO BID for mood, Zyprexa 5 mg PO HS for psychosis, and Trazodone 50 mg PO HS for depression/sleep disturbance. Discussed possible metabolic side effects reference antipsychotics and suicidality and medication induced yadira reference antidepressants.
[2016-09-19] MEDS: DESYREL PO SCH (21:42)
[2016-09-20 09:35] LABS: Alanine Aminotransferase 15 units/L (7-56); Alkaline Phosphatase 44 units/L (35-129)
--- NOTE | 2016-09-20 15:20 | Progress Note ---
Subjective - Reason for Consult Consult date: 09/20/16 Reason for consult: psychiatric follow up - Chief Complaint Chief complaint: "I need my meds" This is a 30-year-old male white male who presented to the ER for a second time. Has a past medical history of schizophrenia and hypertension. Today patient is irritable, cooperative but disorganized with a tangential thought process. He was able to tell me that he ran out of his medications. He spoke about how a secuirty guard is trying to kill him and is hurting others. He left the room after discussing this. On previous admission patient was transferred to [place] inpatient services. He denies SI/HI's, AVH's, or a poor appetite. He states sleep disturbance currently. Mental Status Exam - Vital signs Last Vital Signs Temp 98 F 09/20/16 09:25 Pulse 79 09/20/16 09:25 Resp 18 09/20/16 09:25 BP 102/51 09/20/16 09:25 Pulse Ox 98 09/20/16 09:25 - Exam Narrative exam: ROS (+) disorganized, (+) psychosis MSE: Appearance: hospital attire, steady gait Behavior: poor eye contact Speech: pressured Mood: irritable Affect: flat Thought Process: tangential Thought Content: denies SI/HI's and AVH's Motor Activity: ambulatory Cognition: A/Ox3 Insight: poor Judgment: poor Assessment and Plan Impression: Unspecified Psychotic DOS. This is a 30-year-old male white male that I evaluated in the past 09/07/2016. Has a past medical history of schizophrenia and hypertension. Today patient is calm, cooperative but disorganized with a tangential thought process. He was able to tell me that he ran out of his medications. LFTs reviewed, within normal lmits. DD: R/O Bipolar, Schizoaffective DO Recommendation/Plan: Continue 1013 with placement to inpatient psy services. Continue Depakote 500 mg PO BID for mood, Zyprexa 5 mg PO HS for psychosis, and Trazodone 50 mg PO HS for depression/sleep disturbance. Discussed possible metabolic side effects reference antipsychotics and suicidality and medication induced yadira reference antidepressants.
[2016-09-20] MEDS: DESYREL PO SCH (22:30)
--- NOTE | 2016-09-21 10:44 | Progress Note ---
Subjective - Reason for Consult Consult date: 09/21/16 Reason for consult: Psychiatry Follow-up - Chief Complaint Chief complaint: "I would like to leave today" This is a 30-year-old male white male who presented to the ER for a second time. Has a past medical history of schizophrenia and hypertension. Today patient is calm and cooperative with a circumstantial thought process. He wants to be discharged and stated, "I do not want to go inpatient, been there done that." He stated that I could call his aunt (Yana Gonzalez). He stated she is in the process of getting him an apartment. He could not tell me her number to verify this information. Patient had to be redirected during assessment possible external stimuli. He denies SI/HI's, AVH's, depression or a poor appetite. He stated that he "slept" well last night. Mental Status Exam - Vital signs Last Vital Signs Temp 97.4 F L 09/20/16 20:13 Pulse 56 L 09/20/16 20:13 Resp 18 09/20/16 20:13 BP 93/47 09/20/16 20:13 Pulse Ox 99 09/20/16 20:13 - Exam Narrative exam: MSE: Appearance: calm, cooperative Behavior: poor eye contact Speech: regular rate and tone Mood: "I am better" Affect: flat Thought Process: circumstantial Thought Content: denies SI/HI's and AVH's Motor Activity: ambulatory Cognition: A/Ox3 Insight: poor Judgment: poor Assessment and Plan Impression: This is a 30-year-old male white male who presented to the ER for a second time. Has a past medical history of schizophrenia and hypertension. Today patient is calm and cooperative with a circumstantial thought process. He wants to be discharged and stated, "I do not want to go inpatient, been there done that." he stated that I could call his aunt (Yana Gonzalez). He stated she is in the process of getting him an apartment. Patient denies SI/HI's and AVH's. Patient has an hx of medication noncompliance. Recommendation/Plan: Continue 1013 with placement to inpatient psy services. Continue Depakote 500 mg PO BID for mood, Zyprexa 5 mg PO HS for psychosis, and Trazodone 50 mg PO HS for depression/sleep disturbance. Discussed possible metabolic side effects reference antipsychotics and suicidality and medication induced yadira reference antidepressants.
[2016-09-21 12:31] VITALS: BP 98/49
== END 2016-09-21 15:05 ==
LOC: EEVIPCON 13:25 → ED 13:25
DX: F20.9 Schizophrenia, unspecified (principal); Z59.0 Homelessness; I10 Essential (primary) hypertension; Z88.5 Allergy status to narcotic agent; Z91.048 Other nonmedicinal substance allergy status
CPT/HCPCS: 36415; 80048; 80164; 80307; 81001; 84075; 84450; 84460; 84484; 85025; 99285; G0480; 80320

== ENCOUNTER 2016-11-25 13:01 | Emergency (ER) | payer MEDICAID ==
--- NOTE | 2016-11-25 16:54 | Emergency Department Report ---
ED Medical Clearance HPI - General Chief complaint: Recheck/Abnormal Lab/Rx Stated complaint: MENTAL EVALUATION Time Seen by Provider: 11/25/16 16:31 Source: patient Mode of arrival: Ambulatory - History of Present Illness Initial comments: 31-year-old male past medical history schizophrenia presents with request for medication refill. Patient states that he ran out of his Haldol, Depakote Cogentin, Invega and Klonopin 2 days ago. Patient states that he has follow-up with his outpatient psychiatrist after next week. Patient is awake alert and oriented 3 not in acute distress denies any active auditory visual or tactile hallucinations. Denies any current alcohol or drug use. Onset/Timin -: days(s) Reason for Medical Clearance: psychiatric condition Compliant with Home Medications: Yes Home medications: Home Medications Medication Instructions Recorded Confirmed Last Taken Invega 40 mg PO QHS 11/25/16 11/25/16 Unknown clonazePAM [KlonoPIN] 2 mg PO TID 11/25/16 11/25/16 Unknown Previous Rx's Medication Instructions Recorded Last Taken Type Naproxen [Naprosyn] 375 mg PO BID #7 tablet 09/14/16 Unknown Rx Benztropine [Cogentin] 1 mg PO TID #21 tablet 11/25/16 Unknown Rx Divalproex ER [Depakote ER] 1,000 mg PO QHS #7 tablet 11/25/16 Unknown Rx Divalproex ER [Depakote ER] 2 tab PO BID #28 tablet 11/25/16 Unknown Rx Haloperidol [Haldol] 5 mg PO BID #14 tablet 11/25/16 Unknown Rx Allergies/Adverse reactions: Allergies Allergy/AdvReac Type Severity Reaction Status Date / Time codeine Allergy Unknown Verified 03/01/16 22:56 nickel Allergy Rash Uncoded 04/07/15 10:37 ED Review of Systems ROS: Stated complaint: MENTAL EVALUATION Other details as noted in HPI Constitutional: denies: chills, fever Eyes: denies: eye pain, eye discharge, vision change ENT: denies: ear pain, throat pain Respiratory: denies: cough, shortness of breath, wheezing Cardiovascular: denies: chest pain, palpitations Endocrine: no symptoms reported Gastrointestinal: denies: abdominal pain, nausea, diarrhea Genitourinary: denies: urgency, dysuria Musculoskeletal: denies: back pain, joint swelling, arthralgia Skin: denies: rash, lesions Neurological: denies: headache, weakness, paresthesias Psychiatric: as per HPI. denies: anxiety, depression Hematological/Lymphatic: denies: easy bleeding, easy bruising ED Past Medical Hx - Past Medical History Hx Hypertension: Yes Hx Psychiatric Treatment: Yes (schizophrenia) Additional medical history: thyroid - Surgical History Hx Appendectomy: Yes Additional Surgical History: BRAIN SURGERY( aneurysm) - Social History Smoking Status: Current Every Day Smoker Substance Use Type: None - Medications Home Medications: Home Medications Medication Instructions Recorded Confirmed Last Taken Type Naproxen [Naprosyn] 375 mg PO BID #7 tablet 09/14/16 11/25/16 Unknown Rx Benztropine [Cogentin] 1 mg PO TID #21 tablet 11/25/16 Unknown Rx Divalproex ER [Depakote ER] 1,000 mg PO QHS #7 tablet 11/25/16 Unknown Rx Divalproex ER [Depakote ER] 2 tab PO BID #28 tablet 11/25/16 Unknown Rx Haloperidol [Haldol] 5 mg PO BID #14 tablet 11/25/16 Unknown Rx Invega 40 mg PO QHS 11/25/16 11/25/16 Unknown History clonazePAM [KlonoPIN] 2 mg PO TID 11/25/16 11/25/16 Unknown History ED Physical Exam - General Limitations: No Limitations General appearance: alert, in no apparent distress - Head Head exam: Present: atraumatic, normocephalic - Eye Eye exam: Present: normal appearance, PERRL, EOMI - ENT ENT exam: Present: mucous membranes moist - Neck Neck exam: Present: normal inspection, full ROM - Respiratory Respiratory exam: Present: normal lung sounds bilaterally. Absent: respiratory distress - Cardiovascular Cardiovascular Exam: Present: regular rate, normal rhythm. Absent: systolic murmur, diastolic murmur, rubs, gallop - GI/Abdominal GI/Abdominal exam: Present: soft, normal bowel sounds - Rectal Rectal exam: Present: deferred - Extremities Exam Extremities exam: Present: normal inspection - Back Exam Back exam: Present: normal inspection - Neurological Exam Neurological exam: Present: alert, oriented X3, CN II-XII intact, normal gait - Psychiatric Psychiatric exam: Present: normal affect, normal mood - Skin Skin exam: Present: warm, dry, intact, normal color. Absent: rash ED Course Vital Signs 11/25/16 11/25/16 15:14 17:36 Temperature 98.4 F Pulse Rate 100 H 87 Respiratory 20 20 Rate Blood Pressure 140/78 Blood Pressure 117/62 [Right] O2 Sat by Pulse 100 99 Oximetry ED Medical Decision Making - Medical Decision Making A/P: Psychiatric medication refill 1- I discussed case with Dr. Chatman. I will provide patient with 1 week worth of his outpt psychiatric medicine and advised him to follow-up with his outpatient psychiatrist. I also provided patient with information for outpatient psychiatry follow-up. Will not represcribe klonopin due to abuse potential 2- pt is AAOx3, NAD, calm, cooperative, denies SI/HI, denies any current auditory, visual or tactile hallucinations. no overt signs of acute psychosis during my interview 3- I provided pt with outpt psych f/u info and advised him to call for an appointment if he could not get to his current psychiatrist for whatever reason. Pt agreed to do so. ED Disposition Clinical Impression: Encounter for medication refill Schizophrenia Qualifiers: Schizophrenia type: unspecified Qualified Code(s): F20.9 - Schizophrenia, unspecified Disposition: DC-01 TO HOME OR SELFCARE Is pt being admited?: No Does the pt Need Aspirin: No Condition: Stable Additional Instructions: [email or web address] [address] [place] [address] [place], [place] [address] Prescriptions: Divalproex ER [Depakote ER] 1,000 mg PO QHS #7 tablet Benztropine [Cogentin] 1 mg PO TID #21 tablet Divalproex ER [Depakote ER] 2 tab PO BID #28 tablet Haloperidol [Haldol] 5 mg PO BID #14 tablet Referrals: [facility] [Outside] - 3-5 Days [facility] [Outside] - 3-5 Days [facility] [Provider Group] - 3-5 Days Forms: Work/School Release Form(ED) Time of Disposition: 17:28
[2016-11-25 17:37] VITALS: BP 117/62
== END 2016-11-25 17:37 | disposition home or self-care (01) ==
LOC: ED 13:01
DX: Z76.0 Encounter for issue of repeat prescription (principal); F20.9 Schizophrenia, unspecified; I10 Essential (primary) hypertension; F17.210 Nicotine dependence, cigarettes, uncomplicated; Z88.6 Allergy status to analgesic agent; Z88.8 Allergy status to other drugs, medicaments and biological substances
CPT/HCPCS: 99282

== ENCOUNTER 2016-11-25 21:49 | Emergency (ER) | payer MEDICAID ==
[2016-11-26 00:26] LABS: Basophils % (Auto) 1.2 % (0.0-1.8); Hematocrit 43.4 % (35.5-45.6); Hemoglobin 15.1 gm/dl (11.8-15.2); Mean Corpuscular HGB Conc 35 % (32-34); Mean Corpuscular Hemoglobin 32 pg (28-32); Mean Corpuscular Volume 92 fl (84-94); Platelet Count 265 K/mm3 (140-440); Red Blood Count 4.72 M/mm3 (3.65-5.03); Red Cell Distribution Width 14.4 % (13.2-15.2); White Blood Count 8.3 K/mm3 (4.5-11.0)
[2016-11-26 01:02] LABS: Urine Drugs of Abuse Note Disclamer
[2016-11-26 01:02] LABS: Anion Gap 16 mmol/L; Blood Urea Nitrogen 7 mg/dL (9-20); Carbon Dioxide 25 mmol/L (22-30); Chloride 96.6 mmol/L (98-107); Glucose 84 mg/dL (75-100); Potassium 3.7 mmol/L (3.6-5.0); Sodium 134 mmol/L (137-145)
[2016-11-26 01:21] LABS: Bilirubin,Urine NEG (Negative); Blood,Urine NEG (Negative); Ketones,Urine NEG (Negative); Leukocyte Esterase,Urine NEG (Negative); Nitrite,Urine NEG (Negative); Protein,Urine <15 mg/dL mg/dL (Negative); Urobilinogen,Urine < 2.0 mg/dL (<2.0); WBC,Urine < 1.0 /HPF (0.0-6.0)
[2016-11-26] MEDS ORDERED: NACL 0.9% 1000 ML 1,000 ML IV ONE (13:33)
--- NOTE | 2016-11-26 13:36 | Emergency Department Report ---
ED Psych HPI - General Chief Complaint: Psych Stated Complaint: MH EVAL Time Seen by Provider: 11/26/16 13:32 Source: patient Mode of arrival: Ambulatory - History of Present Illness MD Complaint: suicidal ideation, feels depressed, altered mental status -: Gradual Associated Psychiatric Symptoms: depression, suicidal ideation, homicidal ideation History of same: Yes Quality: constant Improves With: medication Worsens With: none Context: not taking psychiatric Associated Symptoms: denies: confusion, headache, shortness of breath, nausea, syncope, insomnia Treatments Prior to Arrival: none If Self Harm: admits thoughts of - Related Data Home Medications Medication Instructions Recorded Confirmed Last Taken Invega 40 mg PO QHS 11/25/16 11/25/16 Unknown clonazePAM [KlonoPIN] 2 mg PO TID 11/25/16 11/25/16 Unknown Previous Rx's Medication Instructions Recorded Last Taken Type Naproxen [Naprosyn] 375 mg PO BID #7 tablet 09/14/16 Unknown Rx Benztropine [Cogentin] 1 mg PO TID #21 tablet 11/25/16 Unknown Rx Divalproex ER [Depakote ER] 1,000 mg PO QHS #7 tablet 11/25/16 Unknown Rx Divalproex ER [Depakote ER] 2 tab PO BID #28 tablet 11/25/16 Unknown Rx Haloperidol [Haldol] 5 mg PO BID #14 tablet 11/25/16 Unknown Rx Allergies Allergy/AdvReac Type Severity Reaction Status Date / Time codeine Allergy Unknown Verified 03/01/16 22:56 nickel Allergy Rash Uncoded 04/07/15 10:37 ED Review of Systems ROS: Stated complaint: MH EVAL Other details as noted in HPI Comment: All other systems reviewed and negative ED Past Medical Hx - Past Medical History Hx Hypertension: Yes Hx Psychiatric Treatment: Yes (schizophrenia) Additional medical history: thyroid - Surgical History Hx Appendectomy: Yes Additional Surgical History: BRAIN SURGERY( aneurysm) - Social History Smoking Status: Current Every Day Smoker Substance Use Type: Cocaine - Medications Home Medications: Home Medications Medication Instructions Recorded Confirmed Last Taken Type Naproxen [Naprosyn] 375 mg PO BID #7 tablet 09/14/16 11/25/16 Unknown Rx Benztropine [Cogentin] 1 mg PO TID #21 tablet 11/25/16 Unknown Rx Divalproex ER [Depakote ER] 1,000 mg PO QHS #7 tablet 11/25/16 Unknown Rx Divalproex ER [Depakote ER] 2 tab PO BID #28 tablet 11/25/16 Unknown Rx Haloperidol [Haldol] 5 mg PO BID #14 tablet 11/25/16 Unknown Rx Invega 40 mg PO QHS 11/25/16 11/25/16 Unknown History clonazePAM [KlonoPIN] 2 mg PO TID 11/25/16 11/25/16 Unknown History ED Physical Exam - General Limitations: No Limitations General appearance: alert, in no apparent distress - Head Head exam: Present: atraumatic, normocephalic - Eye Eye exam: Present: normal appearance - ENT ENT exam: Present: normal exam, normal orophraynx, mucous membranes moist - Neck Neck exam: Present: normal inspection - Respiratory Respiratory exam: Present: normal lung sounds bilaterally. Absent: respiratory distress - Cardiovascular Cardiovascular Exam: Present: regular rate, normal rhythm. Absent: systolic murmur, diastolic murmur, rubs, gallop - GI/Abdominal GI/Abdominal exam: Present: soft, normal bowel sounds - Rectal Rectal exam: Present: deferred - Extremities Exam Extremities exam: Present: normal inspection - Back Exam Back exam: Present: normal inspection - Neurological Exam Neurological exam: Present: alert, oriented X3 - Psychiatric Psychiatric exam: Present: depressed, suicidal ideation - Skin Skin exam: Present: warm, dry, intact, normal color. Absent: rash ED Course Vital Signs 11/25/16 11/26/16 11/26/16 23:49 05:36 06:45 Temperature 98.5 F 97.5 F L 98 F Pulse Rate 95 H 84 65 Respiratory 16 18 14 Rate Blood Pressure 120/84 140/104 Blood Pressure 120/84 125/91 [Left] O2 Sat by Pulse 100 100 97 Oximetry 11/26/16 08:05 Temperature 98 F Pulse Rate 67 Respiratory 20 Rate Blood Pressure Blood Pressure 121/89 [Left] O2 Sat by Pulse 100 Oximetry ED Medical Decision Making - Lab Data Result diagrams: 11/26/16 00:10 11/26/16 00:10 - Medical Decision Making will need psych referral, for further evaluation.1013 form in the chart awaiting for psych transfer Critical care attestation.: If time is entered above; I have spent that time in minutes in the direct care of this critically ill patient, excluding procedure time. ED Disposition Clinical Impression: Schizophrenia Qualifiers: Schizophrenia type: unspecified Qualified Code(s): F20.9 - Schizophrenia, unspecified Psychosis Qualifiers: Psychosis type: unspecified psychosis type Qualified Code(s): F29 - Unspecified psychosis not due to a substance or known physiological condition Disposition: DC/TX-65 PSY HOSP/PSY UNIT Is pt being admited?: No Does the pt Need Aspirin: No Condition: Good Referrals: PRIMARY CARE, [Primary Care Provider] - 3-5 Days
--- NOTE | 2016-11-26 14:27 | Consultation ---
History of Present Illness - Reason for Consult Reason for consult: AMS Medications and Allergies Allergies Allergy/AdvReac Type Severity Reaction Status Date / Time codeine Allergy Unknown Verified 03/01/16 22:56 nickel Allergy Rash Uncoded 04/07/15 10:37 Home Medications Medication Instructions Recorded Confirmed Last Taken Type Naproxen [Naprosyn] 375 mg PO BID #7 tablet 09/14/16 11/25/16 Unknown Rx Benztropine [Cogentin] 1 mg PO TID #21 tablet 11/25/16 Unknown Rx Divalproex ER [Depakote ER] 1,000 mg PO QHS #7 tablet 11/25/16 Unknown Rx Divalproex ER [Depakote ER] 2 tab PO BID #28 tablet 11/25/16 Unknown Rx Haloperidol [Haldol] 5 mg PO BID #14 tablet 11/25/16 Unknown Rx Invega 40 mg PO QHS 11/25/16 11/25/16 Unknown History clonazePAM [KlonoPIN] 2 mg PO TID 11/25/16 11/25/16 Unknown History Active Meds: Active Medications Sodium Chloride (Nacl 0.9% 1000 Ml) 1,000 mls @ 999 mls/hr IV BOLUS ONE Stop: 11/26/16 14:33 Mental Status Exam - Vital signs Last Vital Signs Temp 98 F 11/26/16 06:45 Pulse 65 11/26/16 06:45 Resp 14 11/26/16 06:45 BP 125/91 11/26/16 06:45 Pulse Ox 97 11/26/16 06:45 Results Result Diagrams: 11/26/16 00:10 11/26/16 00:10 Abnormal lab results 11/26/16 11/26/16 11/26/16 Range/Units 00:10 00:10 00:10 MCHC 35 H (32-34) % [place] % (Auto) 13.9 H (0.0-7.3) % [place] # 1.2 H (0.0-0.8) K/mm3 Sodium 134 L (137-145) mmol/L Chloride 96.6 L (98-107) mmol/L BUN 7 L (9-20) mg/dL Creatinine 0.7 L (0.8-1.5) mg/dL Valproic Acid 26.0 L (50-100) ug/mL All other labs normal. Assessment and Plan Assessment and plan: CHIEF COMPLAINT IN PATIENTS WORDS: HISTORY OF PRESENT ILLNESS: This is a 31-year-old undomiciled male with a past psychiatric history of schizophrenia, cannabis abuse, alcohol abuse, cocaine abuse who now presents to [facility] expressing the desire to get into a rehabilitation program. On presentation, the patient was disorganized and only periodically alert. Per review of the medical record, patient was frequently sedated during the assessment that was done by multiple interviewers. Per the medical record, patient denies suicidality or homicidality. However, patient does report that he has recently used cocaine and marijuana. PSYCHIATRIC REVIEW OF SYSTEMS: Substance: UDS positive for cocaine Detoxification/Withdrawal: Appears somewhat sedated with changes to his sensorium, most notably patient appears sedated Depression: Unable to provide Mignon: Unable to provide Psychosis: no AVH Anxiety/ OCD/ PTSD: Unable to provide Suicidality: Unable to provide Other Self-Injurious Behavior: none currently, no SIB noted recently Violent/ Aggressive Behavior: none noted CURRENT MEDICATIONS: Klonopin Naproxen Merida Haldol Depakote Cogentin ALLERGIES: Codeine and nickel PAST PSYCHIATRIC HISTORY: Inpatient: Multiple inpatient hospitalizations Outpatient: [facility] Prior Suicide Attempts: Unable to provide Prior Self-Injurious Behaviors: Unable to provide PAST PSYCHIATRIC MEDICATION TRIALS: Haldol Remeron Depakote BuSpar Zyprexa Trazodone Requesting MEDICAL HISTORY: Denies MENTAL STATUS EXAM: General Appearance: Dressed in hospital gown, no acute distress Sensorium/Consciousness: Sedate Eye Contact: limited Attitude / Behavior: Uncooperative Psychomotor & Musculoskeletal Activity: PMR Mood: Unable to report Affect: Blunted Speech / Language: Disfluent Thought Processes: Perseverative Thought Content: Unable to assess Perception: Unable to assess Orientation: person Judgment What would you do if you smelled smoke in a crowded movie theater?: poor/impulsive Insight: poor Intelligence Vocabulary, general fund of knowledge, educational level: Average Capacity of ADLs: Somewhat dependent currently due to altered mental status STRENGTHS: PSYCHOSOCIAL AND ENVIRONMENTAL STRESSORS: ASSESSMENT: Schizophrenia Cocaine abuse Alcohol abuse Cannabis abuse PLAN OF CARE: Observe for signs and symptoms of withdrawal Old medications that would further sedate the patient at the current time Reassess tomorrow and initiate psychotropic medications to help patient stabilize his mood and consolidate his sleep Refer to inpatient psychiatric facility for further mental health care
[2016-11-26 22:02] VITALS: BP 106/76
== END 2016-11-26 21:45 ==
LOC: EEVIPCON 21:49 → ED 21:49
DX: F20.9 Schizophrenia, unspecified (principal); F29 Unspecified psychosis not due to a substance or known physiological condition; I10 Essential (primary) hypertension; F17.200 Nicotine dependence, unspecified, uncomplicated; Z91.048 Other nonmedicinal substance allergy status; Z88.5 Allergy status to narcotic agent
CPT/HCPCS: 36415; 80048; 80164; 80307; 81001; 85025; 96360; 99285; G0480; J7030; 80320